=== PATIENT | male | born 1950 | race Caucasian/White ===

== ENCOUNTER → 2017-05-22 | Outpatient (CLI) | payer SELFPAY ==
[2016-01-29 12:08] VITALS: BP 115/61
[2017-05-22 17:10] LABS: BASOPHILS % (AUTO) 0.6 % (0.2-1.0); EOSINOPHILS # (AUTO) 0.1 x10^3/uL (0.0-0.2); EOSINOPHILS % (AUTO) 2.1 % (0.9-2.9); HEMATOCRIT 36.8 % (42.0-54.0); LYMPHOCYTES # (AUTO) 0.5 X10^3/uL (1.3-2.9); LYMPHOCYTES % (AUTO) 8.4 % (21.0-51.0); MEAN CORPUSCULAR HEMOGLOBIN 35.7 pg (27.0-34.0); MEAN CORPUSCULAR HGB CONC 35.2 g/dL (33.0-35.0); MEAN CORPUSCULAR VOLUME 101.3 fL (80.0-100.0); MEAN PLATELET VOLUME 8.8 fL (7.4-11.0); MONOCYTES # (AUTO) 0.6 x10^3/uL (0.3-0.8); MONOCYTES % (AUTO) 9.7 % (0.0-13.0); NEUTROPHILS # (AUTO) 4.5 x10^3/uL (2.2-4.8); NEUTROPHILS % (AUTO) 79.2 % (42.0-75.0); PLATELET COUNT 129 X10^3/uL (150.0-450.0); RED BLOOD COUNT 3.63 X10^6/uL (4.7-6.0); RED CELL DISTRIBUTION WIDTH 13.9 % (11.6-16.5); WHITE BLOOD COUNT 5.7 X10^3/uL (3.6-10.0)
[2017-05-22 17:29] LABS: ALANINE AMINOTRANSFERASE 52 Units/L (12-78); ALBUMIN 2.5 g/dL (3.4-5.0); ALKALINE PHOSPHATASE 126 Units/L (46-116); AMYLASE 127 Units/L (25-115); ASPARTATE AMINO TRANSFERASE 56 Units/L (15-37); BLOOD UREA NITROGEN 14 mg/dL (7-18); CALCIUM 7.9 mg/dL (8.5-10.1); CARBON DIOXIDE 23.6 mmol/L (21-32); CHLORIDE 109 mmol/L (98-107); CHOL/HDL RATIO 2.9 (0.0-5.0); CHOLESTEROL 97 mg/dL (0-200); COR CA(FOR HYPOALB) 9.1 mg/dL (8.5-10.1); CREATININE 0.99 mg/dL (0.70-1.30); HDL CHOLESTEROL 33 mg/dL (40-60); LIPASE 199 Units/L (73-393); MAGNESIUM 1.9 mg/dL (1.7-2.9); SODIUM 142 mmol/L (136-145); TOTAL PROTEIN 6.7 g/dL (6.4-8.2); TRIGLYCERIDES 67 mg/dL (0-150); TSH (3RD GENERATION) 2.026 uIU/mL (0.358-3.74); eGFR BLACK RACES > 60 (>60); eGFR NON BLACK RACES > 60 (>60)
== END ==
LOC: LAB 16:48
PROVIDERS: ATTEND Nurse Practitioner Family
DX: R53.83 Other fatigue (principal); E78.4 Other hyperlipidemia; E55.9 Vitamin D deficiency, unspecified; R94.5 Abnormal results of liver function studies; D51.0 Vitamin B12 deficiency anemia due to intrinsic factor deficiency
CPT/HCPCS: 36415; 80053; 80061; 82150; 82607; 82977; 83690; 83735; 84443; 85025

== ENCOUNTER 2017-06-27 11:02 | Inpatient (IN) | payer OTHER ==
--- NOTE | 2017-06-27 11:22 | DR.URIAD ---
HPI - Time Seen Time seen: 11:15 - PCP Primary Care Physician: gretchen - Complaint Chief Complaint Doctors Comments: Patient presents with complaint of shortness of breath. History of COPD using albuterol qid w/o home oxygen. Oxygen saturations of 98%. History of cirrohsis Chief Complaint:: pt stated he has liver problems, short of breath and swelling all over. - Source History Provided: Patient - Mode of Arrival Mode of Arrival: Ambulatory - Timing Onset of Chief Complaint: 06/13/17 PMH - PMH Past Medical History: Yes Past Medical History: Anemia, Cirrhosis, GERD, Liver Disease Past Surgical History: Yes Surgical History: Appendectomy - Family History History of Family Medical Conditions: Yes Family Medical History: Diabetes Mellitus, Cancer, [place], Sudden Cardiac , Hypertension - Social History Does patient currently use any type of tobacco product: Yes Have you used tobacco products in the last 12 months: Yes Type of Tobacco Use: Cigarettes How many years tobacco product used: 50 Does any household member use tobacco: Yes Alcohol Use: None Do you use any recreational Drugs:: No Lives With: Family Lives Where: Home - infectious screening In the last 2 months have you had wt loss of >10#?: NO Have you had fever, night sweats or hemotysis?: No Have you traveled outside the country in the last 6 months?: No Isolation: Standard ROS - Review of Systems Eyes: No Symptoms Reported ENTM: No Symptoms Reported, Hearing Loss Cardiovascular: No Symptoms Reported Gastrointestinal/Abdominal: No Symptoms Reported Genitourinary: No Symptoms Reported Neurological: No Symptoms Reported Musculoskeletal: No Symptoms Reported Integumentary: No Symptoms Reported Hematologic/Lymphatic: No Symptoms Reported Endocrine: No Symptoms Reported Psychiatric: No Symptoms Reported All Other Systems: Reviewed and Negative PE - Vital Signs Vitals: Temperature 98.9 F Pulse Rate 91 Respiratory Rate 18 Blood Pressure [Left Arm] 115/61 Blood Pressure [Right Arm] 132/63 Blood Pressure 115/59 O2 Sat by Pulse Oximetry 96 - General Limitations: No Limitations General Appearance: Alert - Head Head Exam: Normal Inspection, Atraumatic - Eyes Eye exam: Normal Appearance, PERRL, EOMI - ENT ENT Exam: Normal Exam External Ear Exam: Normal External Inspection TM/Canal Exam: Bilateral Normal Nose Exam: Normal Nose Exam Nasal Speculum Exam: Bilateral Normal Mouth Exam: Normal Inspection Throat Exam: Normal Inspection - Neck Neck Exam: Normal Inspection - Chest Chest Inspection: Normal Inspection - Respiratory Respiratory Exam: Prolonged Expiratory Phase Respiratory Exam: Bilateral Wheezing (prolong expiratory phase) - Cardiovascular Cardiovascular Exam: Regular Rate, Normal Rhythm - Abdominal Exam Abdominal Exam: Organomegaly, Ascites Abdominal Tenderness: Other (diffuse ascites) - Extremeties Extremities Exam: Normal Inspection, Edema (4+pitting), Joint Swelling - Back Back Exam: Normal Inspection - Neurologic Neurological Exam: Alert, Oriented X3, CN II-XII Intact - Psychiatric Psychiatric Exam: Normal Affect - Skin Skin Exam: Warm, Dry, Intact Course - Reevaluation 1st: Improved (Lungs with minimal expiratory wheeze 1237) - Consultation Called: 12:45 (Dr Patel agreed to admit for further management) ROR - Labs Reviewed Result Diagrams: 06/27/17 11:45 06/27/17 11:45 Laboratory: WBC 7.4 X10^3/uL (3.6-10.0) 06/27/17 11:45 RBC 2.95 X10^6/uL (4.7-6.0) L 06/27/17 11:45 Hgb 10.6 g/dL (13.5-18.0) L 06/27/17 11:45 Hct 29.7 % (42.0-54.0) L 06/27/17 11:45 MCV 100.8 fL (80.0-100.0) H 06/27/17 11:45 MCH 35.8 pg (27.0-34.0) H 06/27/17 11:45 MCHC 35.5 g/dL (33.0-35.0) H 06/27/17 11:45 RDW 14.0 % (11.6-16.5) 06/27/17 11:45 Plt Count 156 X10^3/uL (150.0-450.0) 06/27/17 11:45 MPV 8.1 fL (7.4-11.0) 06/27/17 11:45 Neut % (Auto) 81.1 % (42.0-75.0) H 06/27/17 11:45 Lymph % (Auto) 5.8 % (21.0-51.0) L 06/27/17 11:45 Barnes % (Auto) 10.2 % (0.0-13.0) 06/27/17 11:45 Eos % (Auto) 2.4 % (0.9-2.9) 06/27/17 11:45 Baso % (Auto) 0.5 % (0.2-1.0) 06/27/17 11:45 Neut # (Auto) 6.0 x10^3/uL (2.2-4.8) H 06/27/17 11:45 Lymph # (Auto) 0.4 X10^3/uL (1.3-2.9) L 06/27/17 11:45 Barnes # (Auto) 0.8 x10^3/uL (0.3-0.8) 06/27/17 11:45 Eos # (Auto) 0.2 x10^3/uL (0.0-0.2) 06/27/17 11:45 Baso # (Auto) 0.0 X10^3/uL (0.0-0.1) 06/27/17 11:45 Absolute Nucleated RBC 0.0 /100WBC 06/27/17 11:45 D-Dimer > 5000 ng/mL (0-400) H* 06/27/17 11:45 Sodium 139 mmol/L (136-145) 06/27/17 11:45 Corrected Sodium TNP 06/27/17 11:45 Potassium 4.0 mmol/L (3.5-5.1) 06/27/17 11:45 Chloride 105 mmol/L (98-107) 06/27/17 11:45 Carbon Dioxide 25.8 mmol/L (21-32) 06/27/17 11:45 BUN 40 mg/dL (7-18) H 06/27/17 11:45 Creatinine 2.16 mg/dL (0.70-1.30) H 06/27/17 11:45 Est GFR (MDRD) Af Amer 40 (>60) L 06/27/17 11:45 Est GFR (MDRD) Non-Af 33 (>60) L 06/27/17 11:45 Glucose 109 mg/dL (65-99) H 06/27/17 11:45 Calcium 8.0 mg/dL (8.5-10.1) L 06/27/17 11:45 Corrected Calcium 9.3 mg/dL (8.5-10.1) 06/27/17 11:45 Total Bilirubin 0.80 mg/dL (0.2-1.0) 06/27/17 11:45 AST 67 Units/L (15-37) H 06/27/17 11:45 ALT 57 Units/L (12-78) 06/27/17 11:45 Alkaline Phosphatase 121 Units/L (46-116) H 06/27/17 11:45 Total Protein 6.8 g/dL (6.4-8.2) 06/27/17 11:45 Albumin 2.4 g/dL (3.4-5.0) L 06/27/17 11:45 Globulin 4.4 g/dL (2.5-4.5) 06/27/17 11:45 Albumin/Globulin Ratio 0.5 Ratio (1.1-2.1) L 06/27/17 11:45 - XRAY XRAY Interpreted by: Radiologist (Chest: the lungs are clear. The heart size is normal. Evidence for remote left clavicular fracture is noted. No acute bony abnormalities are identified. Impression: No radiographic evidence of acute cardiopulmonary disease or significant change is noted when compared to the prior examination (01/29/16)) - Diagnosis Discharge Problem: Acute dyspnea, Scrotal edema, Prerenal azotemia, COPD (chronic obstructive pulmonary disease) Cirrhosis of liver Qualifiers: Hepatic cirrhosis type: unspecified biliary cirrhosis Qualified Code(s): K74.5 - Biliary cirrhosis, unspecified Ascites Qualifiers: Ascites type: other type Qualified Code(s): R18.8 - Other ascites Hepatitis C Qualifiers: Viral hepatitis chronicity: chronic Hepatic coma status: without hepatic coma Qualified Code(s): B18.2 - Chronic viral hepatitis C - Discharge Plan Condition: Stable - Follow ups/Referrals Follow ups/Referrals: Robin Patel [Primary Care Provider] - 3 days - Instructions
[2017-06-27] MEDS ORDERED: DUONEB 0.5 MG/3 MG NEB SCH (11:30)
[2017-06-27 11:56] LABS: BASOPHILS % (AUTO) 0.5 % (0.2-1.0); EOSINOPHILS # (AUTO) 0.2 x10^3/uL (0.0-0.2); EOSINOPHILS % (AUTO) 2.4 % (0.9-2.9); HEMATOCRIT 29.7 % (42.0-54.0); HEMOGLOBIN 10.6 g/dL (13.5-18.0); LYMPHOCYTES # (AUTO) 0.4 X10^3/uL (1.3-2.9); LYMPHOCYTES % (AUTO) 5.8 % (21.0-51.0); MEAN CORPUSCULAR HEMOGLOBIN 35.8 pg (27.0-34.0); MEAN CORPUSCULAR HGB CONC 35.5 g/dL (33.0-35.0); MEAN CORPUSCULAR VOLUME 100.8 fL (80.0-100.0); MEAN PLATELET VOLUME 8.1 fL (7.4-11.0); MONOCYTES # (AUTO) 0.8 x10^3/uL (0.3-0.8); MONOCYTES % (AUTO) 10.2 % (0.0-13.0); NEUTROPHILS % (AUTO) 81.1 % (42.0-75.0); PLATELET COUNT 156 X10^3/uL (150.0-450.0); RED BLOOD COUNT 2.95 X10^6/uL (4.7-6.0); WHITE BLOOD COUNT 7.4 X10^3/uL (3.6-10.0)
[2017-06-27 12:11] LABS: ALANINE AMINOTRANSFERASE 57 Units/L (12-78); ALBUMIN 2.4 g/dL (3.4-5.0); ALKALINE PHOSPHATASE 121 Units/L (46-116); ASPARTATE AMINO TRANSFERASE 67 Units/L (15-37); BLOOD UREA NITROGEN 40 mg/dL (7-18); CARBON DIOXIDE 25.8 mmol/L (21-32); CHLORIDE 105 mmol/L (98-107); COR CA(FOR HYPOALB) 9.3 mg/dL (8.5-10.1); CREATININE 2.16 mg/dL (0.70-1.30); SODIUM 139 mmol/L (136-145); TOTAL PROTEIN 6.8 g/dL (6.4-8.2); eGFR BLACK RACES 40 (>60); eGFR NON BLACK RACES 33 (>60)
[2017-06-27] MEDS ORDERED: DUONEB 0.5 MG/3 MG ONE (12:28)
--- NOTE | 2017-06-27 12:30 | RAD ---
HISTORY: COPD. Cirrhosis. Study: AP portable chest Comparison: 01/29/2016 Findings: The lungs are clear. The heart size is normal. Evidence for remote left clavicular fracture is note d. No acute bony abnormalities are identified. IMPRESSION: 1. No radiographic evidence of acute cardiopulmonary disease or significant change is noted when com pared to the prior examination. Reported By:
[2017-06-27] MEDS ORDERED: PHENERGAN SUPP 25 MG RECTAL PRN (13:16)
[2017-06-27] MEDS: LASIX IVP SCH ×2 (13:44→20:51)
[2017-06-27] MEDS ORDERED: TORADOL 30 MG VIAL IVP ONE (14:37)
[2017-06-27] MEDS ORDERED: TORADOL 30 MG VIAL ONE (14:44)
[2017-06-27] MEDS ORDERED: ALBUTEROL SULFATE INH SCH (15:00)
[2017-06-27] MEDS ORDERED: PROVENTIL NEB TX 0.083% 2.5MG/ 3ML NEB PRN (15:28)
[2017-06-27] MEDS: PROVENTIL NEB TX 0.083% 2.5MG/ 3ML NEB SCH (17:01)
[2017-06-27] MEDS: NICOTINE PATCH TD SCH (18:08)
[2017-06-27] MEDS: ALDACTONE TAB 25 MG PO SCH (20:51)
[2017-06-27] MEDS: CHRONULAC PO SCH (20:51)
[2017-06-27] MEDS: AMBIEN PO SCH (20:51)
[2017-06-27] MEDS: ADVIL TAB 200 MG PO PRN (21:42)
[2017-06-28] MEDS: PROVENTIL NEB TX 0.083% 2.5MG/ 3ML NEB SCH ×5 (00:32→17:05)
[2017-06-28 05:27] LABS: BASOPHILS % (AUTO) 0.4 % (0.2-1.0); EOSINOPHILS # (AUTO) 0.2 x10^3/uL (0.0-0.2); EOSINOPHILS % (AUTO) 2.8 % (0.9-2.9); HEMATOCRIT 26.4 % (42.0-54.0); HEMOGLOBIN 9.4 g/dL (13.5-18.0); LYMPHOCYTES # (AUTO) 0.4 X10^3/uL (1.3-2.9); LYMPHOCYTES % (AUTO) 6.9 % (21.0-51.0); MEAN CORPUSCULAR HEMOGLOBIN 36.2 pg (27.0-34.0); MEAN CORPUSCULAR HGB CONC 35.5 g/dL (33.0-35.0); MEAN PLATELET VOLUME 8.7 fL (7.4-11.0); MONOCYTES # (AUTO) 0.8 x10^3/uL (0.3-0.8); MONOCYTES % (AUTO) 12.9 % (0.0-13.0); NEUTROPHILS # (AUTO) 4.8 x10^3/uL (2.2-4.8); PLATELET COUNT 147 X10^3/uL (150.0-450.0); RED BLOOD COUNT 2.59 X10^6/uL (4.7-6.0); RED CELL DISTRIBUTION WIDTH 13.9 % (11.6-16.5)
[2017-06-28 05:32] LABS: CALCIUM 7.4 mg/dL (8.5-10.1); TOTAL PROTEIN 5.8 g/dL (6.4-8.2)
[2017-06-28 06:07] LABS: WHITE BLOOD COUNT 6.7 X10^3/uL (3.6-10.0)
[2017-06-28 06:08] LABS: PLATELET MORPHOLOGY COMMENT NORMAL (NORMAL)
[2017-06-28] MEDS ORDERED: PATIENT'S HOME MEDICATION (Potassium Chloride [K-Tab Er] 1 TAB) PO SCH (09:00)
[2017-06-28] MEDS ORDERED: MAGNESIUM OXIDE 500 MG PO SCH (09:00)
[2017-06-28] MEDS: LASIX IVP SCH ×2 (09:11→20:57)
[2017-06-28] MEDS: CHRONULAC PO SCH ×2 (09:11→20:57)
[2017-06-28] MEDS: ALDACTONE TAB 25 MG PO SCH ×2 (09:11→20:57)
[2017-06-28] MEDS: MICRO K EXTEN CAP 10 MEQ PO SCH (09:11)
[2017-06-28] MEDS: MAG-OX TAB PO SCH (09:11)
[2017-06-28] MEDS: NICOTINE PATCH TD SCH (09:12)
[2017-06-28 10:24] VITALS: BMI 30.1
[2017-06-28] MEDS: ADVIL TAB 200 MG PO PRN (10:37)
[2017-06-28] MEDS: ALBUMIN HUMAN 25%- 100ML 100 ML IV SCH (11:27)
[2017-06-28] MEDS: MORPHINE SULFATE INJ 2 MG INJ IVP PRN ×2 (11:28→19:49)
[2017-06-28] MEDS ORDERED: NS 250 ML IV 250 ML IV ONE (11:30)
--- NOTE | 2017-06-28 12:36 | NM ---
HISTORY: COPD, elevated D-dimer Study: Nuclear Medicine Ventilation Perfusion Study Comparison: Chest radiograph 06/27/2017 Technique: After the administration of 5.4 mCi of technetium 99m MAA followed by inhalation of 30.5 m Ci of technetium 99m DTPA, anterior, posterior, and lateral perfusion and ventilation images were sub mitted. Findings: Evaluation of perfusion physiology demonstrates no significant segmental or subsegmental defect to larson ggest pulmonary embolus. There is central clumping of DTPA that can be seen in the setting of COPD. T here is symmetric ventilation bilaterally without evidence of defect. IMPRESSION: 1. No evidence of PE. Reported By:
--- NOTE | 2017-06-28 14:38 | VAS ---
HISTORY: Bilateral lower extremity edema, elevated D-dimer Study: Bilateral lower extremity venous Doppler Comparison: 01/26/2016 Technique: Multiple grayscale sonographic images were obtained. Color duplex Doppler evaluation was p erformed. Findings: Sonographic evaluation of both lower extremities demonstrated no evidence for deep venous thrombosis in the common femoral, superficial femoral or popliteal veins. The tibial veins are patent. IMPRESSION: No evidence for deep venous thrombosis in either lower extremity Reported By:
[2017-06-28] MEDS: AMBIEN PO SCH (20:57)
--- NOTE | 2017-06-28 21:27 | DR.H&P ---
H&P - History & Physical for Day of: H&P Date: 06/27/17 - Chief Complaint Chief Complaint: SHORTNESS OF BREATH, SWELLING - Allergies Allergies/Adverse Reactions: Allergies Allergy/AdvReac Type Severity Reaction Status Date / Time acetaminophen Allergy Verified 06/27/17 11:04 [From Lorcet (hydrocodone)] codeine Allergy Verified 06/27/17 11:04 hydrocodone Allergy Verified 06/27/17 11:04 [From Lorcet (hydrocodone)] STEROID Allergy Uncoded 06/27/17 15:14 - History of Present Illness History of Present Illness: IS A 66 YEAR OLD PATIENT OF OURS WHO PRESENTED TO THE EMERGENCY ROM WITH COMPLAINTS OF SHORTNESS OF BREATH AND GENERALIZED SWELLING. PATIENT REPORTS A HISTORY OF LIVER FAILURE, CIRRHOSIS, AND COPD. HE REPORTS COMPLIANCE WITH ALBUTERAL AND HOME OXYGEN, HOWEVER, SYMPTOMS HAVE ONLY WORSENED. ON EXAMINATION, PATIENT IS NOTED WITH 2+ LOWER EXTREMITY PITTING EDEMA WELL SCROTAL EDEMA. ON ARRIVAL, VITALS WERE 98.9- 91-18-96%-115/59. LABS WERE OBTAINED. ABNORMAL LAB VALUES INCLUDE THE FOLLOWING : RBC 2.95, HGB 10.6, HCT 29.7, BUN 40, CREATININE 2.16, GLUCOSE 109, CALCIUM 8.0, AST 67, ALK PHOS 121, ALBUMIN 2.4. A CHEST XRAY WAS OBTAINED AND REVEALED NO RADIOGRAPHIC EVIDENCE OF ACUTE CARDIOPULMONARY DISEASE OR SIGNIFICANT CHANGE NOTED WHEN COMPARD TO THE PRIOR EXAMINATION. PATIENT WAS GIVEN A DUONEB X 1 AND TORADOL 30MG IV X 1. VINCENT IMPROVEMENT IN SYMPTOMS NOTED. PATIENT WAS ADMITTED FOR FURTHER EVALUATION AND TERATMENT. HE WAS STARTED ON LASIX 40MG IV BID WELL RESPIRATORY TREATMENTS. HOME MEDICATIONS WERE RESUMED. A VQ SCAN WELL BILATERAL LOWER EXTREMITY VENOUS DOPPLERS WILL BE OBTAINED. OTHERWISE, WE WILL FOLLOW UP WITH AM LABS AND CONTINUE TO MONITOR PATIENT. - Past Medical History Past Medical History: Anemia, Cirrhosis, GERD, Liver Disease Additional Medical History: COPD, Hepatitis C, Cirrhosis, Back Pain, Previous Blood Transfusion - Past Surgical History Surgical History: Appendectomy, Other Additional Surgical History: 2 Amputations - Family History Family Medical History: Cancer, [place] - Social History Does patient currently use any type of tobacco product: Yes Have you used tobacco products in the last 12 months: Yes Type of Tobacco Use: Cigarettes How many years tobacco product used: 50 Does any household member use tobacco: Yes Alcohol Use: None Drug Use: None - Medications Home Medications: Albuterol Sulfate [Proventil HFA Inhaler 6.7 gm] 6.7 inh INH BID 06/27/17 [ History Confirmed 06/27/17] Albuterol Sulfate [VENTOLIN or PROAIR HFA Inhaler *] 108 inh INH Q6HR 06/27/17 [ History Confirmed 06/27/17] Ibuprofen [Motrin Ib] 200 mg PO TID PRN 06/27/17 [History Confirmed 06/27/17] Magnesium Oxide [Magnesium] 500 mg PO DAILY 06/27/17 [History Confirmed 06/27/17 ] Zolpidem Tartrate 10 mg PO HS 06/27/17 [History Confirmed 06/27/17] - Review of Systems Constitutional: Weakness Eyes: No Symptoms Reported ENT: No Symptoms Reported Respiratory: Shortness of Breath Cardiovascular: Edema (BILATERAL LOWER EXTREMITIES, SCROTUM ) Gastrointestinal: No Symptoms Reported Genitourinary: No Symptoms Reported Musculoskeletal: No Symptoms Reported Skin: No Symptoms Reported Neurological: Weakness - Physical Exam Vital Signs: Temperature 98.5 F Pulse Rate [Right Brachial] 87 Pulse Rate 72 Respiratory Rate 24 Blood Pressure [Left Arm] 116/58 Blood Pressure [Right Arm] 113/57 Blood Pressure 115/59 O2 Sat by Pulse Oximetry 97 Oriented: Normal Eyes: Normal Ear: Normal Nose: Normal Throat: Normal Respiratory: Diminished Throughout Cardiovascular: Edema (BILATERAL LOWER EXTREMITY 2+ PITTING EDEMA, SCROTAL EDEMA ) : Normal Auscultation: Bowel Sounds: Normal Palpation: Normal Tenderness: Normal Skin: Normal Musculoskeletal: Normal Psychiatric: Normal Mood Description: Calm Affect: Normal Speech Pattern: Clear - Assessment/Plan (1) Acute dyspnea Status: Acute Plan: ADMIT, RESPIRATORY TREATMENTS, LASIX 40MG IV BID, CONTINUE TO MONITOR (2) Ascites Qualifiers: Ascites type: other type Qualified Code(s): R18.8 - Other ascites Status: Acute (3) Prerenal azotemia Status: Acute (4) Scrotal edema Status: Acute
[2017-06-29] MEDS: PROVENTIL NEB TX 0.083% 2.5MG/ 3ML NEB SCH ×4 (01:04→17:25)
[2017-06-29] MEDS: MORPHINE SULFATE INJ 2 MG INJ IVP PRN ×3 (03:11→19:45)
[2017-06-29 06:34] LABS: BASOPHILS % (AUTO) 0.5 % (0.2-1.0); EOSINOPHILS # (AUTO) 0.2 x10^3/uL (0.0-0.2); EOSINOPHILS % (AUTO) 3.4 % (0.9-2.9); HEMOGLOBIN 9.7 g/dL (13.5-18.0); LYMPHOCYTES # (AUTO) 0.4 X10^3/uL (1.3-2.9); LYMPHOCYTES % (AUTO) 6.5 % (21.0-51.0); MEAN CORPUSCULAR HEMOGLOBIN 36.3 pg (27.0-34.0); MEAN CORPUSCULAR HGB CONC 35.9 g/dL (33.0-35.0); MEAN CORPUSCULAR VOLUME 100.9 fL (80.0-100.0); MEAN PLATELET VOLUME 8.2 fL (7.4-11.0); MONOCYTES # (AUTO) 0.7 x10^3/uL (0.3-0.8); MONOCYTES % (AUTO) 11.8 % (0.0-13.0); NEUTROPHILS # (AUTO) 4.9 x10^3/uL (2.2-4.8); NEUTROPHILS % (AUTO) 77.8 % (42.0-75.0); PLATELET COUNT 141 X10^3/uL (150.0-450.0); RED BLOOD COUNT 2.68 X10^6/uL (4.7-6.0); RED CELL DISTRIBUTION WIDTH 13.8 % (11.6-16.5); WHITE BLOOD COUNT 6.2 X10^3/uL (3.6-10.0)
[2017-06-29 06:51] LABS: ALANINE AMINOTRANSFERASE 53 Units/L (12-78); ALBUMIN 2.5 g/dL (3.4-5.0); ALKALINE PHOSPHATASE 100 Units/L (46-116); ASPARTATE AMINO TRANSFERASE 54 Units/L (15-37); BLOOD UREA NITROGEN 30 mg/dL (7-18); CALCIUM 7.3 mg/dL (8.5-10.1); CARBON DIOXIDE 27.5 mmol/L (21-32); CHLORIDE 105 mmol/L (98-107); COR CA(FOR HYPOALB) 8.5 mg/dL (8.5-10.1); COR NA(FOR HYPERGLY) 139 mmol/L (136-145); CREATININE 1.43 mg/dL (0.70-1.30); SODIUM 138 mmol/L (136-145); TOTAL PROTEIN 6.4 g/dL (6.4-8.2); eGFR BLACK RACES > 60 (>60); eGFR NON BLACK RACES 53 (>60)
[2017-06-29] MEDS: CHRONULAC PO SCH ×2 (08:48→20:57)
[2017-06-29] MEDS: MICRO K EXTEN CAP 10 MEQ PO SCH (08:48)
[2017-06-29] MEDS: MAG-OX TAB PO SCH (08:48)
[2017-06-29] MEDS: ALDACTONE TAB 25 MG PO SCH ×2 (08:49→20:57)
[2017-06-29] MEDS: LASIX IVP SCH ×2 (08:49→20:58)
[2017-06-29] MEDS: NICOTINE PATCH TD SCH (08:49)
[2017-06-29] MEDS: ALBUMIN HUMAN 25%- 100ML 100 ML IV SCH (08:50)
[2017-06-29] MEDS: AMBIEN PO SCH (20:57)
[2017-06-30] MEDS: PROVENTIL NEB TX 0.083% 2.5MG/ 3ML NEB SCH ×3 (00:20→13:00)
[2017-06-30] MEDS: MORPHINE SULFATE INJ 2 MG INJ IVP PRN ×4 (01:15→22:19)
[2017-06-30 06:39] LABS: BASOPHILS % (AUTO) 0.5 % (0.2-1.0); EOSINOPHILS # (AUTO) 0.2 x10^3/uL (0.0-0.2); EOSINOPHILS % (AUTO) 2.8 % (0.9-2.9); HEMATOCRIT 25.6 % (42.0-54.0); HEMOGLOBIN 9.2 g/dL (13.5-18.0); LYMPHOCYTES # (AUTO) 0.5 X10^3/uL (1.3-2.9); LYMPHOCYTES % (AUTO) 5.9 % (21.0-51.0); MEAN CORPUSCULAR HEMOGLOBIN 36.2 pg (27.0-34.0); MEAN CORPUSCULAR VOLUME 100.7 fL (80.0-100.0); MEAN PLATELET VOLUME 8.5 fL (7.4-11.0); MONOCYTES # (AUTO) 1.1 x10^3/uL (0.3-0.8); MONOCYTES % (AUTO) 12.9 % (0.0-13.0); NEUTROPHILS # (AUTO) 6.4 x10^3/uL (2.2-4.8); NEUTROPHILS % (AUTO) 77.9 % (42.0-75.0); PLATELET COUNT 134 X10^3/uL (150.0-450.0); RED BLOOD COUNT 2.54 X10^6/uL (4.7-6.0); RED CELL DISTRIBUTION WIDTH 13.6 % (11.6-16.5); WHITE BLOOD COUNT 8.2 X10^3/uL (3.6-10.0)
[2017-06-30 07:00] LABS: ALANINE AMINOTRANSFERASE 52 Units/L (12-78); ALBUMIN 2.6 g/dL (3.4-5.0); ALKALINE PHOSPHATASE 95 Units/L (46-116); ASPARTATE AMINO TRANSFERASE 54 Units/L (15-37); BLOOD UREA NITROGEN 25 mg/dL (7-18); CALCIUM 7.1 mg/dL (8.5-10.1); CARBON DIOXIDE 26.7 mmol/L (21-32); CHLORIDE 103 mmol/L (98-107); COR CA(FOR HYPOALB) 8.2 mg/dL (8.5-10.1); CREATININE 1.25 mg/dL (0.70-1.30); SODIUM 136 mmol/L (136-145); TOTAL PROTEIN 6.3 g/dL (6.4-8.2); eGFR BLACK RACES > 60 (>60); eGFR NON BLACK RACES > 60 (>60)
[2017-06-30] MEDS: LASIX IVP SCH ×2 (08:21→20:49)
[2017-06-30] MEDS: MICRO K EXTEN CAP 10 MEQ PO SCH (08:21)
[2017-06-30] MEDS: CHRONULAC PO SCH ×2 (08:21→20:50)
[2017-06-30] MEDS: ALDACTONE TAB 25 MG PO SCH ×2 (08:21→20:49)
[2017-06-30] MEDS: MAG-OX TAB PO SCH (08:21)
[2017-06-30] MEDS: ALBUMIN HUMAN 25%- 100ML 100 ML IV SCH (08:22)
[2017-06-30] MEDS: NICOTINE PATCH TD SCH (08:22)
[2017-06-30] MEDS: ADVIL TAB 200 MG PO PRN ×2 (08:33→17:01)
[2017-06-30] MEDS ORDERED: PROVENTIL NEB TX 0.083% 2.5MG/ 3ML ONE (13:17)
--- NOTE | 2017-06-30 14:46 | US ---
History: Cirrhosis and liver disease and abdominal distention Study: Ultrasound of the abdomen Findings: The liver is normal in size without focal mass. The gallbladder is contracted around multiple stones. The stones are small and casts strong acoustic shadows. The common hepatic duct measures 7 mm. The right kidney measures 11.5 x 4.8 x 4.9 cm with cortical thickness of 1.2 cm. The left kidney veronica ures 10 x 5.4 x 5 cm with cortical thickness of 1.8 cm. There is no hydronephrosis. The spleen measures 8.6 x 3.9 x 4.2 cm. The pancreas is poorly visualized. The IVC is patent. The aorta is obscured by gas. There is moderate to severe ascites. Impression: 1. Moderately severe ascites 2. Cholelithiasis Reported By:
[2017-06-30] MEDS: AMBIEN PO SCH (20:49)
[2017-07-01] MEDS: PROVENTIL NEB TX 0.083% 2.5MG/ 3ML NEB SCH ×4 (00:38→17:02)
[2017-07-01] MEDS: ADVIL TAB 200 MG PO PRN ×2 (03:49→15:18)
[2017-07-01] MEDS: MORPHINE SULFATE INJ 2 MG INJ IVP PRN ×3 (04:27→22:48)
[2017-07-01 06:35] LABS: ALANINE AMINOTRANSFERASE 47 Units/L (12-78); ALBUMIN 2.7 g/dL (3.4-5.0); ALKALINE PHOSPHATASE 94 Units/L (46-116); ASPARTATE AMINO TRANSFERASE 47 Units/L (15-37); BLOOD UREA NITROGEN 23 mg/dL (7-18); CALCIUM 7.3 mg/dL (8.5-10.1); CARBON DIOXIDE 29.3 mmol/L (21-32); CHLORIDE 104 mmol/L (98-107); COR CA(FOR HYPOALB) 8.3 mg/dL (8.5-10.1); COR NA(FOR HYPERGLY) 139 mmol/L (136-145); CREATININE 1.21 mg/dL (0.70-1.30); SODIUM 139 mmol/L (136-145); TOTAL PROTEIN 6.1 g/dL (6.4-8.2); eGFR BLACK RACES > 60 (>60); eGFR NON BLACK RACES > 60 (>60)
[2017-07-01 06:38] LABS: BASOPHILS % (AUTO) 0.5 % (0.2-1.0); EOSINOPHILS # (AUTO) 0.3 x10^3/uL (0.0-0.2); EOSINOPHILS % (AUTO) 4.2 % (0.9-2.9); HEMATOCRIT 25.2 % (42.0-54.0); HEMOGLOBIN 9.2 g/dL (13.5-18.0); LYMPHOCYTES # (AUTO) 0.4 X10^3/uL (1.3-2.9); MEAN CORPUSCULAR HEMOGLOBIN 36.4 pg (27.0-34.0); MEAN CORPUSCULAR HGB CONC 36.3 g/dL (33.0-35.0); MEAN CORPUSCULAR VOLUME 100.4 fL (80.0-100.0); MEAN PLATELET VOLUME 8.6 fL (7.4-11.0); MONOCYTES # (AUTO) 0.9 x10^3/uL (0.3-0.8); MONOCYTES % (AUTO) 12.1 % (0.0-13.0); NEUTROPHILS # (AUTO) 5.8 x10^3/uL (2.2-4.8); NEUTROPHILS % (AUTO) 78.2 % (42.0-75.0); PLATELET COUNT 128 X10^3/uL (150.0-450.0); RED BLOOD COUNT 2.51 X10^6/uL (4.7-6.0); RED CELL DISTRIBUTION WIDTH 13.6 % (11.6-16.5); WHITE BLOOD COUNT 7.4 X10^3/uL (3.6-10.0)
[2017-07-01] MEDS: LASIX IVP SCH ×2 (09:42→20:37)
[2017-07-01] MEDS: ALBUMIN HUMAN 25%- 100ML 100 ML IV SCH (09:43)
[2017-07-01] MEDS: MICRO K EXTEN CAP 10 MEQ PO SCH (09:43)
[2017-07-01] MEDS: ALDACTONE TAB 25 MG PO SCH ×2 (09:43→20:37)
[2017-07-01] MEDS: CHRONULAC PO SCH ×2 (09:43→20:37)
[2017-07-01] MEDS: NICOTINE PATCH TD SCH (09:43)
[2017-07-01] MEDS: MAG-OX TAB PO SCH (09:43)
[2017-07-01] MEDS: AMBIEN PO SCH (20:37)
[2017-07-02] MEDS: PROVENTIL NEB TX 0.083% 2.5MG/ 3ML NEB SCH ×4 (00:42→17:05)
[2017-07-02] MEDS: ADVIL TAB 200 MG PO PRN (03:06)
[2017-07-02 06:20] LABS: BASOPHILS % (AUTO) 0.6 % (0.2-1.0); EOSINOPHILS # (AUTO) 0.3 x10^3/uL (0.0-0.2); EOSINOPHILS % (AUTO) 4.5 % (0.9-2.9); HEMATOCRIT 24.6 % (42.0-54.0); LYMPHOCYTES # (AUTO) 0.4 X10^3/uL (1.3-2.9); LYMPHOCYTES % (AUTO) 5.8 % (21.0-51.0); MEAN CORPUSCULAR HEMOGLOBIN 36.4 pg (27.0-34.0); MEAN CORPUSCULAR HGB CONC 36.5 g/dL (33.0-35.0); MEAN CORPUSCULAR VOLUME 99.6 fL (80.0-100.0); MEAN PLATELET VOLUME 8.6 fL (7.4-11.0); MONOCYTES # (AUTO) 0.8 x10^3/uL (0.3-0.8); MONOCYTES % (AUTO) 12.2 % (0.0-13.0); NEUTROPHILS # (AUTO) 5.4 x10^3/uL (2.2-4.8); NEUTROPHILS % (AUTO) 76.9 % (42.0-75.0); PLATELET COUNT 127 X10^3/uL (150.0-450.0); RED BLOOD COUNT 2.47 X10^6/uL (4.7-6.0); RED CELL DISTRIBUTION WIDTH 13.5 % (11.6-16.5)
[2017-07-02 06:21] LABS: AMMONIA 26 umol/L (11-32)
[2017-07-02 07:33] LABS: ALANINE AMINOTRANSFERASE 39 Units/L (12-78); ALBUMIN 2.5 g/dL (3.4-5.0); ALKALINE PHOSPHATASE 88 Units/L (46-116); ASPARTATE AMINO TRANSFERASE 40 Units/L (15-37); BLOOD UREA NITROGEN 19 mg/dL (7-18); CALCIUM 7.3 mg/dL (8.5-10.1); CARBON DIOXIDE 26.4 mmol/L (21-32); CHLORIDE 102 mmol/L (98-107); COR CA(FOR HYPOALB) 8.5 mg/dL (8.5-10.1); CREATININE 1.18 mg/dL (0.70-1.30); SODIUM 137 mmol/L (136-145); TOTAL PROTEIN 5.8 g/dL (6.4-8.2); eGFR BLACK RACES > 60 (>60); eGFR NON BLACK RACES > 60 (>60)
[2017-07-02] MEDS: ALBUMIN HUMAN 25%- 100ML 100 ML IV SCH (09:51)
[2017-07-02] MEDS: MICRO K EXTEN CAP 10 MEQ PO SCH (09:52)
[2017-07-02] MEDS: MAG-OX TAB PO SCH (09:52)
[2017-07-02] MEDS: CHRONULAC PO SCH ×2 (09:52→20:52)
[2017-07-02] MEDS: ALDACTONE TAB 25 MG PO SCH ×2 (09:52→20:52)
[2017-07-02] MEDS: LASIX IVP SCH ×2 (09:52→20:52)
[2017-07-02] MEDS: NICOTINE PATCH TD SCH (09:52)
[2017-07-02] MEDS: MORPHINE SULFATE INJ 2 MG INJ IVP PRN ×2 (17:22→23:14)
[2017-07-02] MEDS: AMBIEN PO SCH (20:53)
--- NOTE | 2017-07-02 21:07 | PCM.PROG ---
Progress Note - Progress Note for Day of Date: 06/28/17 - Subjective Subjective: WAS ADMITTED FOR DYSPNEA, PRERENAL AZOTEMIA, AND GENERALIZED SWELLING. HE HAS A HISTORY OF LIVER FAILURE, CIRRHOSIS, AND COPD. TODAY, HE IS ALERT AND ORIENTED, LYING IN BED ON MORNING ROUNDS. HE CONTINUES WITH SHORTNESS OF BREATH AND GENERALIZED SWELLING. BILATERAL LOWER EXTREMITIES HAVE 2+ PITTING EDEMA. EXAMINATION REVEALS SCATTERED WHEEZING TO BILATERAL LUNGS. ABDOMEN IS NOTED TO BE DISTENDED WITH MILD, DIFFUSE TENDERNESS NOTED. HIS VITALS THIS MORNING ARE 98.1-85-20-96%-109/56. ABNORMAL LAB VALUES INCLUDE THE FOLLOWING: RBC 2.59, HGB 9.4, HCT 26.4, PLT COUNT 147, BUN 38, CREATININE 2.00, GLUCOSE 114, CALCIUM 7.4, AST 54, TOTAL PROTEIN 5.8, ALBUMIN 2.0. TODAY, WE WILL OBTAIN A VENOUS DOPPLER AND A VQ SCAN. WE WILL ALSO START ALBUMIN 25% AND ADMINISTER LASIX 40MG IV BID. OTHERWISE, WE WILL FOLLOW UP WITH AM LABS AND CONTINUE TO MONITOR PATIENT. - Past Medical Family Social History Past Med/Fam/Surg Hx: No changes since H&P Allergies: Allergies acetaminophen [From Lorcet (hydrocodone)] Allergy (Verified 06/27/17 11:04) codeine Allergy (Verified 06/27/17 11:04) hydrocodone [From Lorcet (hydrocodone)] Allergy (Verified 06/27/17 11:04) STEROID Allergy (Uncoded 06/27/17 15:14) - Review of Systems ROS: No change since H&P - Vital Signs and I&O's Vital Signs: Temperature 98.8 F Pulse Rate [Right Brachial] 88 Pulse Rate 90 Respiratory Rate 20 Blood Pressure [Left Arm] 104/52 Blood Pressure [Right Arm] 118/56 Blood Pressure 115/59 O2 Sat by Pulse Oximetry 95 Intake and Output: Intake & Output 06/30/17 07/01/17 07/02/17 07/03/17 11:59 11:59 11:59 11:59 Intake Total 3555 1090 1220 700 Output Total 3510 800 Balance 3555 1090 -2290 -100 - Physical Exam Oriented: Normal Eyes: Normal Ear: Normal Nose: Normal Throat: Normal Respiratory: Generalized, Diminished Cardiovascular: Edema (BILATERAL LOWER EXTREMITY 2+ PITTING EDEMA, SCROTAL EDEMA ) : Normal Auscultation: Bowel Sounds: Normal Palpation: Normal Tenderness: Normal Skin: Normal Musculoskeletal: Normal Psychiatric: Normal Mood Description: Calm Affect: Normal Speech Pattern: Clear, Appropriate - Laboratory and Diagnostics Result Diagrams: 07/02/17 04:49 07/02/17 04:49 Labs: 07/01/17 12:01 Ascities Fluid - Preliminary 06/27/17 15:40 Sputum - Expectorated Sputum Sputum Culture - Final 06/27/17 15:40 Sputum - Expectorated Sputum - Final Laboratory WBC 7.0 X10^3/uL (3.6-10.0) 07/02/17 04:49 RBC 2.47 X10^6/uL (4.7-6.0) L 07/02/17 04:49 Hgb 9.0 g/dL (13.5-18.0) L 07/02/17 04:49 Hct 24.6 % (42.0-54.0) L 07/02/17 04:49 MCV 99.6 fL (80.0-100.0) 07/02/17 04:49 MCH 36.4 pg (27.0-34.0) H 07/02/17 04:49 MCHC 36.5 g/dL (33.0-35.0) H 07/02/17 04:49 RDW 13.5 % (11.6-16.5) 07/02/17 04:49 Plt Count 127 X10^3/uL (150.0-450.0) L 07/02/17 04:49 Plt Count Comment Adequate (ADEQUATE) 06/28/17 04:46 MPV 8.6 fL (7.4-11.0) 07/02/17 04:49 Neut % (Auto) 76.9 % (42.0-75.0) H 07/02/17 04:49 Lymph % (Auto) 5.8 % (21.0-51.0) L 07/02/17 04:49 Bureau % (Auto) 12.2 % (0.0-13.0) 07/02/17 04:49 Eos % (Auto) 4.5 % (0.9-2.9) H 07/02/17 04:49 Baso % (Auto) 0.6 % (0.2-1.0) 07/02/17 04:49 Neut # (Auto) 5.4 x10^3/uL (2.2-4.8) H 07/02/17 04:49 Lymph # (Auto) 0.4 X10^3/uL (1.3-2.9) L 07/02/17 04:49 Bureau # (Auto) 0.8 x10^3/uL (0.3-0.8) 07/02/17 04:49 Eos # (Auto) 0.3 x10^3/uL (0.0-0.2) H 07/02/17 04:49 Baso # (Auto) 0.0 X10^3/uL (0.0-0.1) 07/02/17 04:49 Absolute Nucleated RBC 0.0 /100WBC 07/02/17 04:49 Plt Morphology Comment Normal (NORMAL) 06/28/17 04:46 RBC Morphology Normal (NORMAL) 06/28/17 04:46 INR Target Range - 07/02/17 04:49 INR 1.37 (0.8-1.3) H 07/02/17 04:49 APTT 36.9 SECONDS (22.9-36.5) H 07/02/17 04:49 PTT Comment - 07/02/17 04:49 D-Dimer > 5000 ng/mL (0-400) H* 06/27/17 11:45 Sodium 137 mmol/L (136-145) 07/02/17 04:49 Corrected Sodium TNP 07/02/17 04:49 Potassium 3.6 mmol/L (3.5-5.1) 07/02/17 04:49 Chloride 102 mmol/L (98-107) 07/02/17 04:49 Carbon Dioxide 26.4 mmol/L (21-32) 07/02/17 04:49 BUN 19 mg/dL (7-18) H 07/02/17 04:49 Creatinine 1.18 mg/dL (0.70-1.30) 07/02/17 04:49 Est GFR (MDRD) Af Amer > 60 (>60) 07/02/17 04:49 Est GFR (MDRD) Non-Af > 60 (>60) 07/02/17 04:49 Glucose 99 mg/dL (65-99) 07/02/17 04:49 Calcium 7.3 mg/dL (8.5-10.1) L 07/02/17 04:49 Corrected Calcium 8.5 mg/dL (8.5-10.1) 07/02/17 04:49 Total Bilirubin 0.70 mg/dL (0.2-1.0) 07/02/17 04:49 AST 40 Units/L (15-37) H 07/02/17 04:49 ALT 39 Units/L (12-78) 07/02/17 04:49 Alkaline Phosphatase 88 Units/L (46-116) 07/02/17 04:49 Ammonia 26 umol/L (11-32) 07/02/17 04:49 Total Protein 5.8 g/dL (6.4-8.2) L 07/02/17 04:49 Albumin 2.5 g/dL (3.4-5.0) L 07/02/17 04:49 Globulin 3.3 g/dL (2.5-4.5) 07/02/17 04:49 Albumin/Globulin Ratio 0.8 Ratio (1.1-2.1) L 07/02/17 04:49 Triglycerides Cancelled 07/01/17 12:01 Cholesterol Cancelled 07/01/17 12:01 LDL Cholesterol, Calc Cancelled 07/01/17 12:01 HDL Cholesterol Cancelled 07/01/17 12:01 Cholesterol/HDL Ratio Cancelled 07/01/17 12:01 Amylase Cancelled 07/01/17 12:01 Lipase Cancelled 07/01/17 12:01 Cytology Specimen To follow 07/01/17 12:01 - Plan (1) Acute dyspnea Status: Acute Plan: ADMIT, RESPIRATORY TREATMENTS, LASIX 40MG IV BID, CONTINUE TO MONITOR (2) Ascites Status: Acute Qualifiers: Ascites type: other type Qualified Code(s): R18.8 - Other ascites (3) Prerenal azotemia Status: Acute (4) Scrotal edema Status: Acute
--- NOTE | 2017-07-02 21:08 | PCM.PROG ---
Progress Note - Progress Note for Day of Date: 06/30/17 - Subjective Subjective: WAS ADMITTED FOR DYSPNEA, PRERENAL AZOTEMIA, AND GENERALIZED SWELLING. TODAY, HE IS ALERT AND ORIENTED, LYING IN BED ON MORNING ROUNDS. HE CONTINUES WITH SHORTNESS OF BREATH AND GENERALIZED SWELLING. BILATERAL LOWER EXTREMITIES CONTINUE WITH 1+ PITTING EDEMA. EXAMINATION REVEALS SCATTERED WHEEZING TO BILATERAL LUNGS. ABDOMEN CONTINUES WITH MODERATE DISTENTION AND MILD, DIFFUSE TENDERNESS. HIS VITALS THIS MORNING ARE 98.3-72-20- 97%-102/50. ABNORMAL LAB VALUES INCLUDE THE FOLLOWING: RBC 2.54, HGB 9.2, HCT 25.6, PLT [id number], BUN 25, GLUCOSE 101, CALCIUM 7.1, AST 54, TOTAL PROTEIN 6.3 , ALBUMIN 2.6. TODAY, WE WILL CONTINUE WITH LASIX AND CURRENT PLAN OF CARE. WE WILL ALSO OBTAIN AN ABDOMEN ULTRASOUND. OTHERWISE, WE WILL FOLLOW UP WITH AM LABS AND CONTINUE TO MONITOR PATIENT. - Past Medical Family Social History Past Med/Fam/Surg Hx: No changes since H&P Allergies: Allergies acetaminophen [From Lorcet (hydrocodone)] Allergy (Verified 06/27/17 11:04) codeine Allergy (Verified 06/27/17 11:04) hydrocodone [From Lorcet (hydrocodone)] Allergy (Verified 06/27/17 11:04) STEROID Allergy (Uncoded 06/27/17 15:14) - Review of Systems ROS: No change since H&P - Vital Signs and I&O's Vital Signs: Temperature 98.8 F Pulse Rate [Right Brachial] 88 Pulse Rate 90 Respiratory Rate 20 Blood Pressure [Left Arm] 104/52 Blood Pressure [Right Arm] 118/56 Blood Pressure 115/59 O2 Sat by Pulse Oximetry 95 Intake and Output: Intake & Output 06/30/17 07/01/17 07/02/17 07/03/17 11:59 11:59 11:59 11:59 Intake Total 3555 1090 1220 700 Output Total 3510 800 Balance 3552 1090 -2290 -100 - Physical Exam Oriented: Normal Eyes: Normal Ear: Normal Nose: Normal Throat: Normal Respiratory: Generalized, Diminished Cardiovascular: Edema (BILATERAL LOWER EXTREMITY 1+ PITTING EDEMA, SCROTAL EDEMA ) : Normal Auscultation: Bowel Sounds: Normal Palpation: Normal Tenderness: Normal Skin: Normal Musculoskeletal: Normal Psychiatric: Normal Mood Description: Calm Affect: Normal Speech Pattern: Clear, Appropriate - Laboratory and Diagnostics Result Diagrams: 07/02/17 04:49 07/02/17 04:49 Labs: 07/01/17 12:01 Ascities Fluid - Preliminary 06/27/17 15:40 Sputum - Expectorated Sputum Sputum Culture - Final 06/27/17 15:40 Sputum - Expectorated Sputum - Final Laboratory WBC 7.0 X10^3/uL (3.6-10.0) 07/02/17 04:49 RBC 2.47 X10^6/uL (4.7-6.0) L 07/02/17 04:49 Hgb 9.0 g/dL (13.5-18.0) L 07/02/17 04:49 Hct 24.6 % (42.0-54.0) L 07/02/17 04:49 MCV 99.6 fL (80.0-100.0) 07/02/17 04:49 MCH 36.4 pg (27.0-34.0) H 07/02/17 04:49 MCHC 36.5 g/dL (33.0-35.0) H 07/02/17 04:49 RDW 13.5 % (11.6-16.5) 07/02/17 04:49 Plt Count 127 X10^3/uL (150.0-450.0) L 07/02/17 04:49 Plt Count Comment Adequate (ADEQUATE) 06/28/17 04:46 MPV 8.6 fL (7.4-11.0) 07/02/17 04:49 Neut % (Auto) 76.9 % (42.0-75.0) H 07/02/17 04:49 Lymph % (Auto) 5.8 % (21.0-51.0) L 07/02/17 04:49 [place] % (Auto) 12.2 % (0.0-13.0) 07/02/17 04:49 Eos % (Auto) 4.5 % (0.9-2.9) H 07/02/17 04:49 Baso % (Auto) 0.6 % (0.2-1.0) 07/02/17 04:49 Neut # (Auto) 5.4 x10^3/uL (2.2-4.8) H 07/02/17 04:49 Lymph # (Auto) 0.4 X10^3/uL (1.3-2.9) L 07/02/17 04:49 [place] # (Auto) 0.8 x10^3/uL (0.3-0.8) 07/02/17 04:49 Eos # (Auto) 0.3 x10^3/uL (0.0-0.2) H 07/02/17 04:49 Baso # (Auto) 0.0 X10^3/uL (0.0-0.1) 07/02/17 04:49 Absolute Nucleated RBC 0.0 /100WBC 07/02/17 04:49 Plt Morphology Comment Normal (NORMAL) 06/28/17 04:46 RBC Morphology Normal (NORMAL) 06/28/17 04:46 INR Target Range - 07/02/17 04:49 INR 1.37 (0.8-1.3) H 07/02/17 04:49 APTT 36.9 SECONDS (22.9-36.5) H 07/02/17 04:49 PTT Comment - 07/02/17 04:49 D-Dimer > 5000 ng/mL (0-400) H* 06/27/17 11:45 Sodium 137 mmol/L (136-145) 07/02/17 04:49 Corrected Sodium TNP 07/02/17 04:49 Potassium 3.6 mmol/L (3.5-5.1) 07/02/17 04:49 Chloride 102 mmol/L (98-107) 07/02/17 04:49 Carbon Dioxide 26.4 mmol/L (21-32) 07/02/17 04:49 BUN 19 mg/dL (7-18) H 07/02/17 04:49 Creatinine 1.18 mg/dL (0.70-1.30) 07/02/17 04:49 Est GFR (MDRD) Af Amer > 60 (>60) 07/02/17 04:49 Est GFR (MDRD) Non-Af > 60 (>60) 07/02/17 04:49 Glucose 99 mg/dL (65-99) 07/02/17 04:49 Calcium 7.3 mg/dL (8.5-10.1) L 07/02/17 04:49 Corrected Calcium 8.5 mg/dL (8.5-10.1) 07/02/17 04:49 Total Bilirubin 0.70 mg/dL (0.2-1.0) 07/02/17 04:49 AST 40 Units/L (15-37) H 07/02/17 04:49 ALT 39 Units/L (12-78) 07/02/17 04:49 Alkaline Phosphatase 88 Units/L (46-116) 07/02/17 04:49 Ammonia 26 umol/L (11-32) 07/02/17 04:49 Total Protein 5.8 g/dL (6.4-8.2) L 07/02/17 04:49 Albumin 2.5 g/dL (3.4-5.0) L 07/02/17 04:49 Globulin 3.3 g/dL (2.5-4.5) 07/02/17 04:49 Albumin/Globulin Ratio 0.8 Ratio (1.1-2.1) L 07/02/17 04:49 Triglycerides Cancelled 07/01/17 12:01 Cholesterol Cancelled 07/01/17 12:01 LDL Cholesterol, Calc Cancelled 07/01/17 12:01 HDL Cholesterol Cancelled 07/01/17 12:01 Cholesterol/HDL Ratio Cancelled 07/01/17 12:01 Amylase Cancelled 07/01/17 12:01 Lipase Cancelled 07/01/17 12:01 Cytology Specimen To follow 07/01/17 12:01 - Plan (1) Acute dyspnea Status: Acute Plan: ADMIT, RESPIRATORY TREATMENTS, LASIX 40MG IV BID, CONTINUE TO MONITOR (2) Ascites Status: Acute Qualifiers: Ascites type: other type Qualified Code(s): R18.8 - Other ascites (3) Prerenal azotemia Status: Acute (4) Scrotal edema Status: Acute
--- NOTE | 2017-07-02 21:08 | PCM.PROG ---
Progress Note - Progress Note for Day of Date: 06/29/17 - Subjective Subjective: WAS ADMITTED FOR DYSPNEA, PRERENAL AZOTEMIA, AND GENERALIZED SWELLING. HE HAS A HISTORY OF LIVER FAILURE, CIRRHOSIS, AND COPD. TODAY, HE IS ALERT AND ORIENTED, LYING IN BED ON MORNING ROUNDS. HE CONTINUES WITH SHORTNESS OF BREATH AND GENERALIZED SWELLING. BILATERAL LOWER EXTREMITIES ARE NOTED WITH 1+ PITTING EDEMA. EXAMINATION REVEALS SCATTERED WHEEZING TO BILATERAL LUNGS. ABDOMEN CONTINUES WITH DISTENTION AND MILD, DIFFUSE TENDERNESS. HIS VITALS THIS MORNING ARE 97.9-82-16-96%-139/68. ABNORMAL LAB VALUES INCLUDE THE FOLLOWING: RBC 2.68, HGB 9.7, HCT 27.0, PLT COUNT 141, BUN 30 , CREATININE 1.43, GLUCOSE 124, CALCIUM 7.3, AST 54, ALBUMIN 2.5. VENOUS DOPPLER AND VQ SCAN NEGATIVE FOR DVT. TODAY, WE WILL CONTINUE WITH LASIX AND CURRENT PLAN OF CARE. OTHERWISE, WE WILL FOLLOW UP WITH AM LABS AND CONTINUE TO MONITOR PATIENT. - Past Medical Family Social History Past Med/Fam/Surg Hx: No changes since H&P Allergies: Allergies acetaminophen [From Lorcet (hydrocodone)] Allergy (Verified 06/27/17 11:04) codeine Allergy (Verified 06/27/17 11:04) hydrocodone [From Lorcet (hydrocodone)] Allergy (Verified 06/27/17 11:04) STEROID Allergy (Uncoded 06/27/17 15:14) - Review of Systems ROS: No change since H&P - Vital Signs and I&O's Vital Signs: Temperature 98.8 F Pulse Rate [Right Brachial] 88 Pulse Rate 90 Respiratory Rate 20 Blood Pressure [Left Arm] 104/52 Blood Pressure [Right Arm] 118/56 Blood Pressure 115/59 O2 Sat by Pulse Oximetry 95 Intake and Output: Intake & Output 06/30/17 07/01/17 07/02/17 07/03/17 11:59 11:59 11:59 11:59 Intake Total 3555 1090 1220 700 Output Total 3510 800 Balance 3555 1090 -2290 -100 - Physical Exam Oriented: Normal Eyes: Normal Ear: Normal Nose: Normal Throat: Normal Respiratory: Generalized, Diminished Cardiovascular: Edema (BILATERAL LOWER EXTREMITY 1+ PITTING EDEMA, SCROTAL EDEMA ) : Normal Auscultation: Bowel Sounds: Normal Tenderness: Normal Skin: Normal Musculoskeletal: Normal Psychiatric: Normal Mood Description: Calm Affect: Normal Speech Pattern: Clear, Appropriate - Laboratory and Diagnostics Result Diagrams: 07/02/17 04:49 07/02/17 04:49 Labs: 07/01/17 12:01 Ascities Fluid - Preliminary 06/27/17 15:40 Sputum - Expectorated Sputum Sputum Culture - Final 06/27/17 15:40 Sputum - Expectorated Sputum - Final Laboratory WBC 7.0 X10^3/uL (3.6-10.0) 07/02/17 04:49 RBC 2.47 X10^6/uL (4.7-6.0) L 07/02/17 04:49 Hgb 9.0 g/dL (13.5-18.0) L 07/02/17 04:49 Hct 24.6 % (42.0-54.0) L 07/02/17 04:49 MCV 99.6 fL (80.0-100.0) 07/02/17 04:49 MCH 36.4 pg (27.0-34.0) H 07/02/17 04:49 MCHC 36.5 g/dL (33.0-35.0) H 07/02/17 04:49 RDW 13.5 % (11.6-16.5) 07/02/17 04:49 Plt Count 127 X10^3/uL (150.0-450.0) L 07/02/17 04:49 Plt Count Comment Adequate (ADEQUATE) 06/28/17 04:46 MPV 8.6 fL (7.4-11.0) 07/02/17 04:49 Neut % (Auto) 76.9 % (42.0-75.0) H 07/02/17 04:49 Lymph % (Auto) 5.8 % (21.0-51.0) L 07/02/17 04:49 [place] % (Auto) 12.2 % (0.0-13.0) 07/02/17 04:49 Eos % (Auto) 4.5 % (0.9-2.9) H 07/02/17 04:49 Baso % (Auto) 0.6 % (0.2-1.0) 07/02/17 04:49 Neut # (Auto) 5.4 x10^3/uL (2.2-4.8) H 07/02/17 04:49 Lymph # (Auto) 0.4 X10^3/uL (1.3-2.9) L 07/02/17 04:49 [place] # (Auto) 0.8 x10^3/uL (0.3-0.8) 07/02/17 04:49 Eos # (Auto) 0.3 x10^3/uL (0.0-0.2) H 07/02/17 04:49 Baso # (Auto) 0.0 X10^3/uL (0.0-0.1) 07/02/17 04:49 Absolute Nucleated RBC 0.0 /100WBC 07/02/17 04:49 Plt Morphology Comment Normal (NORMAL) 06/28/17 04:46 RBC Morphology Normal (NORMAL) 06/28/17 04:46 INR Target Range - 07/02/17 04:49 INR 1.37 (0.8-1.3) H 07/02/17 04:49 APTT 36.9 SECONDS (22.9-36.5) H 07/02/17 04:49 PTT Comment - 07/02/17 04:49 D-Dimer > 5000 ng/mL (0-400) H* 06/27/17 11:45 Sodium 137 mmol/L (136-145) 07/02/17 04:49 Corrected Sodium TNP 07/02/17 04:49 Potassium 3.6 mmol/L (3.5-5.1) 07/02/17 04:49 Chloride 102 mmol/L (98-107) 07/02/17 04:49 Carbon Dioxide 26.4 mmol/L (21-32) 07/02/17 04:49 BUN 19 mg/dL (7-18) H 07/02/17 04:49 Creatinine 1.18 mg/dL (0.70-1.30) 07/02/17 04:49 Est GFR (MDRD) Af Amer > 60 (>60) 07/02/17 04:49 Est GFR (MDRD) Non-Af > 60 (>60) 07/02/17 04:49 Glucose 99 mg/dL (65-99) 07/02/17 04:49 Calcium 7.3 mg/dL (8.5-10.1) L 07/02/17 04:49 Corrected Calcium 8.5 mg/dL (8.5-10.1) 07/02/17 04:49 Total Bilirubin 0.70 mg/dL (0.2-1.0) 07/02/17 04:49 AST 40 Units/L (15-37) H 07/02/17 04:49 ALT 39 Units/L (12-78) 07/02/17 04:49 Alkaline Phosphatase 88 Units/L (46-116) 07/02/17 04:49 Ammonia 26 umol/L (11-32) 07/02/17 04:49 Total Protein 5.8 g/dL (6.4-8.2) L 07/02/17 04:49 Albumin 2.5 g/dL (3.4-5.0) L 07/02/17 04:49 Globulin 3.3 g/dL (2.5-4.5) 07/02/17 04:49 Albumin/Globulin Ratio 0.8 Ratio (1.1-2.1) L 07/02/17 04:49 Triglycerides Cancelled 07/01/17 12:01 Cholesterol Cancelled 07/01/17 12:01 LDL Cholesterol, Calc Cancelled 07/01/17 12:01 HDL Cholesterol Cancelled 07/01/17 12:01 Cholesterol/HDL Ratio Cancelled 07/01/17 12:01 Amylase Cancelled 07/01/17 12:01 Lipase Cancelled 07/01/17 12:01 Cytology Specimen To follow 07/01/17 12:01 - Plan (1) Acute dyspnea Status: Acute Plan: ADMIT, RESPIRATORY TREATMENTS, LASIX 40MG IV BID, CONTINUE TO MONITOR (2) Ascites Status: Acute Qualifiers: Ascites type: other type Qualified Code(s): R18.8 - Other ascites (3) Prerenal azotemia Status: Acute (4) Scrotal edema Status: Acute
--- NOTE | 2017-07-02 22:01 | DR.PROGNOT ---
Hospital Progress Notes - Progress Note for Day of: Progress Note Date: 07/02/17 - Chief Complaint Chief Complaint: feeling much better after drainig more than 5L of ascitic fluid. less pain and less SOB. - Past Medical Family Social History Past Med/Fam/Surg Hx: No changes since H&P Allergies: Allergies acetaminophen [From Lorcet (hydrocodone)] Allergy (Verified 06/27/17 11:04) codeine Allergy (Verified 06/27/17 11:04) hydrocodone [From Lorcet (hydrocodone)] Allergy (Verified 06/27/17 11:04) STEROID Allergy (Uncoded 06/27/17 15:14) - Review Of Systems ROS: No change since H&P - Vital Signs Vital Signs: Temperature 99.1 F Pulse Rate [Right Brachial] 91 Pulse Rate 90 Respiratory Rate 20 Blood Pressure [Left Arm] 116/58 Blood Pressure [Right Arm] 118/56 Blood Pressure 115/59 O2 Sat by Pulse Oximetry 96 - Physical Exam Oriented: Normal Eyes: Normal Ear: Normal Nose: Normal Throat: Normal Respiratory: Generalized, Diminished Cardiovascular: Edema (BILATERAL LOWER EXTREMITY 1+ PITTING EDEMA, SCROTAL EDEMA ) : Normal GI:Auscultation: Normal GI:Palpation: Other (distended abdomen with ascitis .. catheter in place and draining ..) GI: Tenderness: Normal Skin: Normal Musculoskeletal: Normal Psychiatric: Normal Mood Description: Calm Affect: Normal Speech Pattern: Clear, Appropriate - Laboratory and Diagnostics Result Diagrams: 07/02/17 04:49 07/02/17 04:49 Labs: 07/01/17 12:01 Ascities Fluid - Preliminary 06/27/17 15:40 Sputum - Expectorated Sputum Sputum Culture - Final 06/27/17 15:40 Sputum - Expectorated Sputum - Final Laboratory WBC 7.0 X10^3/uL (3.6-10.0) 07/02/17 04:49 RBC 2.47 X10^6/uL (4.7-6.0) L 07/02/17 04:49 Hgb 9.0 g/dL (13.5-18.0) L 07/02/17 04:49 Hct 24.6 % (42.0-54.0) L 07/02/17 04:49 MCV 99.6 fL (80.0-100.0) 07/02/17 04:49 MCH 36.4 pg (27.0-34.0) H 07/02/17 04:49 MCHC 36.5 g/dL (33.0-35.0) H 07/02/17 04:49 RDW 13.5 % (11.6-16.5) 07/02/17 04:49 Plt Count 127 X10^3/uL (150.0-450.0) L 07/02/17 04:49 Plt Count Comment Adequate (ADEQUATE) 06/28/17 04:46 MPV 8.6 fL (7.4-11.0) 07/02/17 04:49 Neut % (Auto) 76.9 % (42.0-75.0) H 07/02/17 04:49 Lymph % (Auto) 5.8 % (21.0-51.0) L 07/02/17 04:49 [place] % (Auto) 12.2 % (0.0-13.0) 07/02/17 04:49 Eos % (Auto) 4.5 % (0.9-2.9) H 07/02/17 04:49 Baso % (Auto) 0.6 % (0.2-1.0) 07/02/17 04:49 Neut # (Auto) 5.4 x10^3/uL (2.2-4.8) H 07/02/17 04:49 Lymph # (Auto) 0.4 X10^3/uL (1.3-2.9) L 07/02/17 04:49 [place] # (Auto) 0.8 x10^3/uL (0.3-0.8) 07/02/17 04:49 Eos # (Auto) 0.3 x10^3/uL (0.0-0.2) H 07/02/17 04:49 Baso # (Auto) 0.0 X10^3/uL (0.0-0.1) 07/02/17 04:49 Absolute Nucleated RBC 0.0 /100WBC 07/02/17 04:49 Plt Morphology Comment Normal (NORMAL) 06/28/17 04:46 RBC Morphology Normal (NORMAL) 06/28/17 04:46 INR Target Range - 07/02/17 04:49 INR 1.37 (0.8-1.3) H 07/02/17 04:49 APTT 36.9 SECONDS (22.9-36.5) H 07/02/17 04:49 PTT Comment - 07/02/17 04:49 D-Dimer > 5000 ng/mL (0-400) H* 06/27/17 11:45 Sodium 137 mmol/L (136-145) 07/02/17 04:49 Corrected Sodium TNP 07/02/17 04:49 Potassium 3.6 mmol/L (3.5-5.1) 07/02/17 04:49 Chloride 102 mmol/L (98-107) 07/02/17 04:49 Carbon Dioxide 26.4 mmol/L (21-32) 07/02/17 04:49 BUN 19 mg/dL (7-18) H 07/02/17 04:49 Creatinine 1.18 mg/dL (0.70-1.30) 07/02/17 04:49 Est GFR (MDRD) Af Amer > 60 (>60) 07/02/17 04:49 Est GFR (MDRD) Non-Af > 60 (>60) 07/02/17 04:49 Glucose 99 mg/dL (65-99) 07/02/17 04:49 Calcium 7.3 mg/dL (8.5-10.1) L 07/02/17 04:49 Corrected Calcium 8.5 mg/dL (8.5-10.1) 07/02/17 04:49 Total Bilirubin 0.70 mg/dL (0.2-1.0) 07/02/17 04:49 AST 40 Units/L (15-37) H 07/02/17 04:49 ALT 39 Units/L (12-78) 07/02/17 04:49 Alkaline Phosphatase 88 Units/L (46-116) 07/02/17 04:49 Ammonia 26 umol/L (11-32) 07/02/17 04:49 Total Protein 5.8 g/dL (6.4-8.2) L 07/02/17 04:49 Albumin 2.5 g/dL (3.4-5.0) L 07/02/17 04:49 Globulin 3.3 g/dL (2.5-4.5) 07/02/17 04:49 Albumin/Globulin Ratio 0.8 Ratio (1.1-2.1) L 07/02/17 04:49 Triglycerides Cancelled 07/01/17 12:01 Cholesterol Cancelled 07/01/17 12:01 LDL Cholesterol, Calc Cancelled 07/01/17 12:01 HDL Cholesterol Cancelled 07/01/17 12:01 Cholesterol/HDL Ratio Cancelled 07/01/17 12:01 Amylase Cancelled 07/01/17 12:01 Lipase Cancelled 07/01/17 12:01 Cytology Specimen To follow 07/01/17 12:01 - Assessment and Plan 1: tense ascitis . liver cirhosis . h/o hepatitis c. if Pt is failing medical treatment of the ascitis then placement of retirement. peritoneal catheter could be arranged .. - Problem Patient Problems: Patient Problems Acute dyspnea (Acute) R06.00 Ascites (Acute) R18.8 Prerenal azotemia (Acute) R79.89 Scrotal edema (Acute) N50.89 COPD (chronic obstructive pulmonary disease) (Chronic) J44.9 Hepatitis C (Chronic) B19.20 Liver cirrhosis (Chronic) K74.60
[2017-07-03] MEDS: PROVENTIL NEB TX 0.083% 2.5MG/ 3ML NEB SCH ×4 (00:54→17:09)
[2017-07-03] MEDS: ADVIL TAB 200 MG PO PRN ×2 (01:21→19:05)
[2017-07-03] MEDS: MORPHINE SULFATE INJ 2 MG INJ IVP PRN ×3 (06:18→16:50)
[2017-07-03 06:23] LABS: BASOPHILS % (AUTO) 0.5 % (0.2-1.0); EOSINOPHILS # (AUTO) 0.3 x10^3/uL (0.0-0.2); EOSINOPHILS % (AUTO) 4.1 % (0.9-2.9); HEMATOCRIT 24.6 % (42.0-54.0); LYMPHOCYTES # (AUTO) 0.4 X10^3/uL (1.3-2.9); LYMPHOCYTES % (AUTO) 5.1 % (21.0-51.0); MEAN CORPUSCULAR HEMOGLOBIN 36.4 pg (27.0-34.0); MEAN CORPUSCULAR HGB CONC 36.5 g/dL (33.0-35.0); MEAN CORPUSCULAR VOLUME 99.7 fL (80.0-100.0); MEAN PLATELET VOLUME 8.4 fL (7.4-11.0); MONOCYTES % (AUTO) 12.9 % (0.0-13.0); NEUTROPHILS # (AUTO) 5.9 x10^3/uL (2.2-4.8); NEUTROPHILS % (AUTO) 77.4 % (42.0-75.0); PLATELET COUNT 133 X10^3/uL (150.0-450.0); RED BLOOD COUNT 2.47 X10^6/uL (4.7-6.0); RED CELL DISTRIBUTION WIDTH 13.3 % (11.6-16.5); WHITE BLOOD COUNT 7.6 X10^3/uL (3.6-10.0)
[2017-07-03 06:27] LABS: ALANINE AMINOTRANSFERASE 36 Units/L (12-78); ALBUMIN 2.6 g/dL (3.4-5.0); ALKALINE PHOSPHATASE 78 Units/L (46-116); ASPARTATE AMINO TRANSFERASE 32 Units/L (15-37); BLOOD UREA NITROGEN 17 mg/dL (7-18); CALCIUM 7.2 mg/dL (8.5-10.1); CARBON DIOXIDE 28.8 mmol/L (21-32); CHLORIDE 100 mmol/L (98-107); COR CA(FOR HYPOALB) 8.3 mg/dL (8.5-10.1); COR NA(FOR HYPERGLY) 135 mmol/L (136-145); CREATININE 1.06 mg/dL (0.70-1.30); SODIUM 134 mmol/L (136-145); TOTAL PROTEIN 5.6 g/dL (6.4-8.2); eGFR BLACK RACES > 60 (>60); eGFR NON BLACK RACES > 60 (>60)
[2017-07-03] MEDS: ALDACTONE TAB 25 MG PO SCH ×2 (09:00→21:03)
[2017-07-03] MEDS: NICOTINE PATCH TD SCH (09:00)
[2017-07-03] MEDS: CHRONULAC PO SCH ×2 (09:00→21:02)
[2017-07-03] MEDS: MAG-OX TAB PO SCH (09:00)
[2017-07-03] MEDS: ALBUMIN HUMAN 25%- 100ML 100 ML IV SCH (09:00)
[2017-07-03] MEDS: MICRO K EXTEN CAP 10 MEQ PO SCH (09:00)
[2017-07-03] MEDS ORDERED: MORPHINE SULFATE INJ 4 MG ONE ×2 (11:07→16:45)
[2017-07-03] MEDS: LASIX IVP SCH ×2 (11:46→21:03)
[2017-07-03] MEDS: MYLICON TAB 80 MG CHEW PO PRN (19:13)
[2017-07-03 19:27] LABS: BASOPHILS # (AUTO) 0.1 X10^3/uL (0.0-0.1); BASOPHILS % (AUTO) 0.5 % (0.2-1.0); EOSINOPHILS # (AUTO) 0.2 x10^3/uL (0.0-0.2); EOSINOPHILS % (AUTO) 2.2 % (0.9-2.9); HEMATOCRIT 28.9 % (42.0-54.0); HEMOGLOBIN 10.2 g/dL (13.5-18.0); LYMPHOCYTES # (AUTO) 0.3 X10^3/uL (1.3-2.9); LYMPHOCYTES % (AUTO) 2.5 % (21.0-51.0); MEAN CORPUSCULAR HEMOGLOBIN 35.3 pg (27.0-34.0); MEAN CORPUSCULAR HGB CONC 35.4 g/dL (33.0-35.0); MEAN CORPUSCULAR VOLUME 99.8 fL (80.0-100.0); MEAN PLATELET VOLUME 8.2 fL (7.4-11.0); MONOCYTES # (AUTO) 0.2 x10^3/uL (0.3-0.8); MONOCYTES % (AUTO) 2.4 % (0.0-13.0); NEUTROPHILS # (AUTO) 9.5 x10^3/uL (2.2-4.8); NEUTROPHILS % (AUTO) 92.4 % (42.0-75.0); PLATELET COUNT 171 X10^3/uL (150.0-450.0); RED CELL DISTRIBUTION WIDTH 13.6 % (11.6-16.5); WHITE BLOOD COUNT 10.3 X10^3/uL (3.6-10.0)
[2017-07-03 19:53] LABS: BAND NEUTROPHILS % 3 % (0-10); HYPOCHROMASIA SLIGHT; PLATELET MORPHOLOGY COMMENT NORMAL (NORMAL)
[2017-07-03] MEDS: VANCOMYCIN HCL 1 GM VIAL 1 GM in D5W 250 ML IV 250 ML IV SCH ×2 (21:00→21:01)
[2017-07-03] MEDS: AMBIEN PO SCH (21:01)
--- NOTE | 2017-07-04 00:01 | DR.PROGNOT ---
Hospital Progress Notes - Progress Note for Day of: Progress Note Date: 07/03/17 - Chief Complaint Chief Complaint: feeling much better after drainig more than 8 L of ascitic fluid. less pain and less SOB. catheter was removed with some drainage from the puncture site. - Past Medical Family Social History Past Med/Fam/Surg Hx: No changes since H&P Allergies: Allergies acetaminophen [From Lorcet (hydrocodone)] Allergy (Verified 06/27/17 11:04) codeine Allergy (Verified 06/27/17 11:04) hydrocodone [From Lorcet (hydrocodone)] Allergy (Verified 06/27/17 11:04) STEROID Allergy (Uncoded 06/27/17 15:14) - Review Of Systems ROS: No change since H&P - Vital Signs Vital Signs: Temperature 100.7 F Pulse Rate [Right Brachial] 100 Pulse Rate 90 Respiratory Rate 22 Blood Pressure [Left Arm] 122/57 Blood Pressure [Right Arm] 118/56 Blood Pressure 115/59 O2 Sat by Pulse Oximetry 96 - Physical Exam Oriented: Normal Eyes: Normal Ear: Normal Nose: Normal Throat: Normal Respiratory: Generalized, Diminished Cardiovascular: Edema (BILATERAL LOWER EXTREMITY 1+ PITTING EDEMA, SCROTAL EDEMA ) : Normal GI:Auscultation: Normal GI:Palpation: Other (distended abdomen with ascitis .. catheter in place and draining ..) GI: Tenderness: Normal Skin: Normal Musculoskeletal: Normal Psychiatric: Normal Mood Description: Calm Affect: Normal Speech Pattern: Clear, Appropriate - Laboratory and Diagnostics Result Diagrams: 07/03/17 19:08 07/03/17 04:50 Labs: 07/01/17 12:01 Ascities Fluid - Preliminary 06/27/17 15:40 Sputum - Expectorated Sputum Sputum Culture - Final 06/27/17 15:40 Sputum - Expectorated Sputum - Final Laboratory WBC 10.3 X10^3/uL (3.6-10.0) H 07/03/17 19:08 RBC 2.90 X10^6/uL (4.7-6.0) L 07/03/17 19:08 Hgb 10.2 g/dL (13.5-18.0) L 07/03/17 19:08 Hct 28.9 % (42.0-54.0) L 07/03/17 19:08 MCV 99.8 fL (80.0-100.0) 07/03/17 19:08 MCH 35.3 pg (27.0-34.0) H 07/03/17 19:08 MCHC 35.4 g/dL (33.0-35.0) H 07/03/17 19:08 RDW 13.6 % (11.6-16.5) 07/03/17 19: Plt Count 171 X10^3/uL (150.0-450.0) 07/03/17 19: Plt Count Comment Adequate (ADEQUATE) 07/03/17 19: MPV 8.2 fL (7.4-11.0) 07/03/17 19:08 Neut % (Auto) 92.4 % (42.0-75.0) H 07/03/17 19: Lymph % (Auto) 2.5 % (21.0-51.0) L 07/03/17 19:08 [place] % (Auto) 2.4 % (0.0-13.0) 07/03/17 19: Eos % (Auto) 2.2 % (0.9-2.9) 07/03/17 19:08 Baso % (Auto) 0.5 % (0.2-1.0) 07/03/17 19:08 Neut # (Auto) 9.5 x10^3/uL (2.2-4.8) H 07/03/17 19:08 Lymph # (Auto) 0.3 X10^3/uL (1.3-2.9) L 07/03/17 19:08 [place] # (Auto) 0.2 x10^3/uL (0.3-0.8) L 07/03/17 19:08 Eos # (Auto) 0.2 x10^3/uL (0.0-0.2) 07/03/17 19:08 Baso # (Auto) 0.1 X10^3/uL (0.0-0.1) 07/03/17 19:08 Absolute Nucleated RBC 0.0 /100WBC 07/03/17 19:08 Total Counted 100 07/03/17 19:08 Neutrophils % (Manual) 85 % (39-76) H 07/03/17 19:08 Band Neutrophils % 3 % (0-10) 07/03/17 19:08 Lymphocytes % (Manual) 6 % (13-43) L 07/03/17 19:08 Monocytes % (Manual) 4 % (4-9) 07/03/17 19:08 Eosinophils % (Manual) 2 % (0-6) 07/03/17 19:08 Plt Morphology Comment Normal (NORMAL) 07/03/17 19:08 RBC Morphology Abnormal (NORMAL) 07/03/17 19:08 Hypochromasia Slight A 07/03/17 19:08 INR Target Range - 07/02/17 04:49 INR 1.37 (0.8-1.3) H 07/02/17 04:49 APTT 36.9 SECONDS (22.9-36.5) H 07/02/17 04:49 PTT Comment - 07/02/17 04:49 D-Dimer > 5000 ng/mL (0-400) H* 06/27/17 11:45 Sodium 134 mmol/L (136-145) L 07/03/17 04:50 Corrected Sodium 135 mmol/L (136-145) L 07/03/17 04:50 Potassium 3.4 mmol/L (3.5-5.1) L 07/03/17 04:50 Chloride 100 mmol/L (98-107) 07/03/17 04:50 Carbon Dioxide 28.8 mmol/L (21-32) 07/03/17 04:50 BUN 17 mg/dL (7-18) 07/03/17 04:50 Creatinine 1.06 mg/dL (0.70-1.30) 07/03/17 04:50 Est GFR (MDRD) Af Amer > 60 (>60) 07/03/17 04:50 Est GFR (MDRD) Non-Af > 60 (>60) 07/03/17 04:50 Glucose 133 mg/dL (65-99) H 07/03/17 04:50 Calcium 7.2 mg/dL (8.5-10.1) L 07/03/17 04:50 Corrected Calcium 8.3 mg/dL (8.5-10.1) L 07/03/17 04:50 Total Bilirubin 0.90 mg/dL (0.2-1.0) 07/03/17 04:50 AST 32 Units/L (15-37) 07/03/17 04:50 ALT 36 Units/L (12-78) 07/03/17 04:50 Alkaline Phosphatase 78 Units/L (46-116) 07/03/17 04:50 Ammonia 26 umol/L (11-32) 07/02/17 04:49 Total Protein 5.6 g/dL (6.4-8.2) L 07/03/17 04:50 Albumin 2.6 g/dL (3.4-5.0) L 07/03/17 04:50 Globulin 3.0 g/dL (2.5-4.5) 07/03/17 04:50 Albumin/Globulin Ratio 0.9 Ratio (1.1-2.1) L 07/03/17 04:50 Triglycerides Cancelled 07/01/17 12:01 Cholesterol Cancelled 07/01/17 12:01 LDL Cholesterol, Calc Cancelled 07/01/17 12:01 HDL Cholesterol Cancelled 07/01/17 12:01 Cholesterol/HDL Ratio Cancelled 07/01/17 12:01 Amylase Cancelled 07/01/17 12:01 Lipase Cancelled 07/01/17 12:01 Cytology Specimen To follow 07/01/17 12:01 - Assessment and Plan 1: tense ascitis . liver cirhosis . h/o hepatitis c. if Pt is failing medical treatment of the ascitis then placement of longterm. peritoneal catheter could be arranged later on after all seapage from puncture site stops to avoid peritonitis, - Problem Patient Problems: Patient Problems Acute dyspnea (Acute) R06.00 Ascites (Acute) R18.8 Prerenal azotemia (Acute) R79.89 Scrotal edema (Acute) N50.89 COPD (chronic obstructive pulmonary disease) (Chronic) J44.9 Hepatitis C (Chronic) B19.20 Liver cirrhosis (Chronic) K74.60
[2017-07-04] MEDS: PROVENTIL NEB TX 0.083% 2.5MG/ 3ML NEB SCH ×3 (00:52→13:21)
[2017-07-04] MEDS ORDERED: MORPHINE SULFATE INJ 4 MG ONE ×2 (04:22→15:15)
[2017-07-04] MEDS: MORPHINE SULFATE INJ 2 MG INJ IVP PRN (04:25)
[2017-07-04] MEDS: ADVIL TAB 200 MG PO PRN ×2 (06:03→20:41)
[2017-07-04 06:24] LABS: BASOPHILS % (AUTO) 0.2 % (0.2-1.0); EOSINOPHILS # (AUTO) 0.1 x10^3/uL (0.0-0.2); EOSINOPHILS % (AUTO) 0.6 % (0.9-2.9); HEMATOCRIT 24.6 % (42.0-54.0); HEMOGLOBIN 8.8 g/dL (13.5-18.0); LYMPHOCYTES # (AUTO) 0.2 X10^3/uL (1.3-2.9); LYMPHOCYTES % (AUTO) 1.6 % (21.0-51.0); MEAN CORPUSCULAR HEMOGLOBIN 35.6 pg (27.0-34.0); MEAN CORPUSCULAR HGB CONC 35.9 g/dL (33.0-35.0); MEAN CORPUSCULAR VOLUME 99.1 fL (80.0-100.0); MEAN PLATELET VOLUME 8.6 fL (7.4-11.0); MONOCYTES # (AUTO) 1.2 x10^3/uL (0.3-0.8); MONOCYTES % (AUTO) 8.3 % (0.0-13.0); NEUTROPHILS # (AUTO) 12.9 x10^3/uL (2.2-4.8); NEUTROPHILS % (AUTO) 89.3 % (42.0-75.0); PLATELET COUNT 136 X10^3/uL (150.0-450.0); RED BLOOD COUNT 2.48 X10^6/uL (4.7-6.0); RED CELL DISTRIBUTION WIDTH 13.2 % (11.6-16.5); WHITE BLOOD COUNT 14.5 X10^3/uL (3.6-10.0)
[2017-07-04 06:47] LABS: ALANINE AMINOTRANSFERASE 37 Units/L (12-78); ALBUMIN 2.7 g/dL (3.4-5.0); ALKALINE PHOSPHATASE 106 Units/L (46-116); ASPARTATE AMINO TRANSFERASE 42 Units/L (15-37); BLOOD UREA NITROGEN 21 mg/dL (7-18); CALCIUM 7.4 mg/dL (8.5-10.1); CHLORIDE 98 mmol/L (98-107); COR CA(FOR HYPOALB) 8.4 mg/dL (8.5-10.1); COR NA(FOR HYPERGLY) 132 mmol/L (136-145); CREATININE 1.49 mg/dL (0.70-1.30); SODIUM 132 mmol/L (136-145); TOTAL PROTEIN 5.7 g/dL (6.4-8.2); eGFR BLACK RACES > 60 (>60); eGFR NON BLACK RACES 50 (>60)
[2017-07-04] MEDS: ALBUMIN HUMAN 25%- 100ML 100 ML IV SCH (09:00)
[2017-07-04] MEDS: MAG-OX TAB PO SCH (09:00)
[2017-07-04] MEDS: MICRO K EXTEN CAP 10 MEQ PO SCH (09:00)
[2017-07-04] MEDS: VANCOMYCIN HCL 1 GM VIAL 1 GM in D5W 250 ML IV 250 ML IV SCH ×2 (09:00→20:43)
[2017-07-04] MEDS: CHRONULAC PO SCH ×2 (09:01→20:42)
[2017-07-04] MEDS: NICOTINE PATCH TD SCH (09:01)
[2017-07-04] MEDS: ALDACTONE TAB 25 MG PO SCH (09:02)
[2017-07-04] MEDS: LASIX IVP SCH (09:02)
[2017-07-04] MEDS: ZOSYN VIAL 3.375 GM 3.375 GM in NS 100 ML IV + SPIKE MINIBAG* 100 ML IV SCH ×3 (11:43→22:31)
[2017-07-04] MEDS: NS 1000 ML 1,000 ML IV SCH ×2 (11:43→20:40)
[2017-07-04] MEDS: MORPHINE SULFATE INJ 4 MG IVP PRN (15:25)
[2017-07-04] MEDS: MYLICON TAB 80 MG CHEW PO PRN (15:30)
--- NOTE | 2017-07-04 20:17 | PCM.PROG ---
Progress Note - Progress Note for Day of Date: 07/01/17 - Subjective Subjective: WAS ADMITTED FOR DYSPNEA, PRERENAL AZOTEMIA, AND GENERALIZED SWELLING. TODAY, HE IS ALERT AND ORIENTED, LYING IN BED ON MORNING ROUNDS. HE CONTINUES WITH SHORTNESS OF BREATH, ABDOMINAL DISTENTION, AND GENERALIZED SWELLING. BILATERAL LOWER EXTREMITIES CONTINUE WITH 1+ PITTING EDEMA. EXAMINATION REVEALS SCATTERED WHEEZING TO BILATERAL LUNGS. ABDOMEN CONTINUES WITH MODERATE DISTENTION AND MILD, DIFFUSE TENDERNESS. HIS VITALS THIS MORNING ARE 98.2-84-20-97%-101/56. ABNORMAL LAB VALUES INCLUDE THE FOLLOWING: RBC 2.51, HGB 9.2, HCT 25.2, PLT COUNT 128, BUN 23, GLUCOSE 111, CALCIUM 7.3, AST 47, TOTAL PROTEIN 6.1, ALBUMIN 2.7. AN ABDOMEN ULTRASOUND WAS OBTAINED YESTERDAY AND REVEALED MODERATELY SEVERE ASCITES, CHOLELITHIASIS. TODAY , WE WILL CONTINUE WITH LASIX AND CURRENT PLAN OF CARE. WE WILL CONSULT FOR PARACENTESIS. OTHERWISE, WE WILL FOLLOW UP WITH AM LABS AND CONTINUE TO MONITOR PATIENT. - Past Medical Family Social History Past Med/Fam/Surg Hx: No changes since H&P Allergies: Allergies acetaminophen [From Lorcet (hydrocodone)] Allergy (Verified 06/27/17 11:04) codeine Allergy (Verified 06/27/17 11:04) hydrocodone [From Lorcet (hydrocodone)] Allergy (Verified 06/27/17 11:04) STEROID Allergy (Uncoded 06/27/17 15:14) - Review of Systems ROS: No change since H&P - Vital Signs and I&O's Vital Signs: Temperature 98.6 F Pulse Rate [Right Brachial] 92 Pulse Rate 88 Respiratory Rate 22 Blood Pressure [Left Arm] 122/51 Blood Pressure [Right Arm] 78/58 Blood Pressure 115/59 O2 Sat by Pulse Oximetry 94 Intake and Output: Intake & Output 07/02/17 07/03/17 07/04/17 07/05/17 11:59 11:59 11:59 11:59 Intake Total 1220 2410 3190 920 Output Total 3510 5000 2000 120 Balance -2290 -2590 1190 800 - Physical Exam Oriented: Normal Eyes: Normal Ear: Normal Nose: Normal Throat: Normal Respiratory: Generalized, Diminished Cardiovascular: Edema (BILATERAL LOWER EXTREMITY 1+ PITTING EDEMA, SCROTAL EDEMA ) : Normal Auscultation: Bowel Sounds: Normal Palpation: Normal Tenderness: Diffuse, Mild Skin: Normal Musculoskeletal: Normal Psychiatric: Normal Mood Description: Calm Affect: Normal Speech Pattern: Clear, Appropriate - Laboratory and Diagnostics Result Diagrams: 07/04/17 04:46 07/04/17 04:46 Labs: 07/01/17 12:01 Ascities Fluid - Preliminary 06/27/17 15:40 Sputum - Expectorated Sputum Sputum Culture - Final 06/27/17 15:40 Sputum - Expectorated Sputum - Final Laboratory WBC 14.5 X10^3/uL (3.6-10.0) H 07/04/17 04:46 RBC 2.48 X10^6/uL (4.7-6.0) L 07/04/17 04:46 Hgb 8.8 g/dL (13.5-18.0) L 07/04/17 04:46 Hct 24.6 % (42.0-54.0) L 07/04/17 04:46 MCV 99.1 fL (80.0-100.0) 07/04/17 04:46 MCH 35.6 pg (27.0-34.0) H 07/04/17 04:46 MCHC 35.9 g/dL (33.0-35.0) H 07/04/17 04:46 RDW 13.2 % (11.6-16.5) 07/04/17 04:46 Plt Count 136 X10^3/uL (150.0-450.0) L 07/04/17 04:46 Plt Count Comment Adequate (ADEQUATE) 07/03/17 19:08 MPV 8.6 fL (7.4-11.0) 07/04/17 04:46 Neut % (Auto) 89.3 % (42.0-75.0) H 07/04/17 04:46 Lymph % (Auto) 1.6 % (21.0-51.0) L 07/04/17 04:46 [place] % (Auto) 8.3 % (0.0-13.0) 07/04/17 04:46 Eos % (Auto) 0.6 % (0.9-2.9) L 07/04/17 04:46 Baso % (Auto) 0.2 % (0.2-1.0) 07/04/17 04:46 Neut # (Auto) 12.9 x10^3/uL (2.2-4.8) H 07/04/17 04:46 Lymph # (Auto) 0.2 X10^3/uL (1.3-2.9) L 07/04/17 04:46 [place] # (Auto) 1.2 x10^3/uL (0.3-0.8) H 07/04/17 04:46 Eos # (Auto) 0.1 x10^3/uL (0.0-0.2) 07/04/17 04:46 Baso # (Auto) 0.0 X10^3/uL (0.0-0.1) 07/04/17 04:46 Absolute Nucleated RBC 0.0 /100WBC 07/04/17 04:46 Total Counted 100 07/03/17 19:08 Neutrophils % (Manual) 85 % (39-76) H 07/03/17 19:08 Band Neutrophils % 3 % (0-10) 07/03/17 19:08 Lymphocytes % (Manual) 6 % (13-43) L 07/03/17 19:08 Monocytes % (Manual) 4 % (4-9) 07/03/17 19:08 Eosinophils % (Manual) 2 % (0-6) 07/03/17 19:08 Plt Morphology Comment Normal (NORMAL) 07/03/17 19:08 RBC Morphology Abnormal (NORMAL) 07/03/17 19:08 Hypochromasia Slight A 07/03/17 19:08 INR Target Range - 07/02/17 04:49 INR 1.37 (0.8-1.3) H 07/02/17 04:49 APTT 36.9 SECONDS (22.9-36.5) H 07/02/17 04:49 PTT Comment - 07/02/17 04:49 D-Dimer > 5000 ng/mL (0-400) H* 06/27/17 11:45 Sodium 132 mmol/L (136-145) L 07/04/17 04:46 Corrected Sodium 132 mmol/L (136-145) L 07/04/17 04:46 Potassium 3.7 mmol/L (3.5-5.1) 07/04/17 04:46 Chloride 98 mmol/L (98-107) 07/04/17 04:46 Carbon Dioxide 26.0 mmol/L (21-32) 07/04/17 04:46 BUN 21 mg/dL (7-18) H 07/04/17 04:46 Creatinine 1.49 mg/dL (0.70-1.30) H 07/04/17 04:46 Est GFR (MDRD) Af Amer > 60 (>60) 07/04/17 04:46 Est GFR (MDRD) Non-Af 50 (>60) L 07/04/17 04:46 Glucose 113 mg/dL (65-99) H 07/04/17 04:46 Calcium 7.4 mg/dL (8.5-10.1) L 07/04/17 04:46 Corrected Calcium 8.4 mg/dL (8.5-10.1) L 07/04/17 04:46 Total Bilirubin 1.00 mg/dL (0.2-1.0) 07/04/17 04:46 AST 42 Units/L (15-37) H 07/04/17 04:46 ALT 37 Units/L (12-78) 07/04/17 04:46 Alkaline Phosphatase 106 Units/L (46-116) 07/04/17 04:46 Ammonia 26 umol/L (11-32) 07/02/17 04:49 Total Protein 5.7 g/dL (6.4-8.2) L 07/04/17 04:46 Albumin 2.7 g/dL (3.4-5.0) L 07/04/17 04:46 Globulin 3.0 g/dL (2.5-4.5) 07/04/17 04:46 Albumin/Globulin Ratio 0.9 Ratio (1.1-2.1) L 07/04/17 04:46 Triglycerides Cancelled 07/01/17 12:01 Cholesterol Cancelled 07/01/17 12:01 LDL Cholesterol, Calc Cancelled 07/01/17 12:01 HDL Cholesterol Cancelled 07/01/17 12:01 Cholesterol/HDL Ratio Cancelled 07/01/17 12:01 Amylase Cancelled 07/01/17 12:01 Lipase Cancelled 07/01/17 12:01 Cytology Specimen To follow 07/01/17 12:01 - Plan (1) Acute dyspnea Status: Acute Plan: ADMIT, RESPIRATORY TREATMENTS, LASIX 40MG IV BID, CONTINUE TO MONITOR (2) Ascites Status: Acute Qualifiers: Ascites type: other type Qualified Code(s): R18.8 - Other ascites (3) Prerenal azotemia Status: Acute (4) Scrotal edema Status: Acute
--- NOTE | 2017-07-04 20:18 | PCM.PROG ---
Progress Note - Progress Note for Day of Date: 07/02/17 - Subjective Subjective: WAS ADMITTED FOR DYSPNEA, PRERENAL AZOTEMIA, AND GENERALIZED SWELLING. TODAY, HE IS ALERT AND ORIENTED, LYING IN BED ON MORNING ROUNDS. HE CONTINUES WITH SHORTNESS OF BREATH, ABDOMINAL DISTENTION, AND GENERALIZED SWELLING. CONSULTED WITH PATIENT YESTERDAY AND PERFORMED A PARACENTESIS AT BEDSIDE. ON EXAMINATION, THERE IS A CATHETER TO THE ABDOMEN NOTED TO BE CONNECTED TO A VACUUM BOTTLE. BILATERAL LOWER EXTREMITIES CONTINUE WITH 1+ PITTING EDEMA. EXAMINATION REVEALS SCATTERED WHEEZING TO BILATERAL LUNGS. ABDOMEN CONTINUES WITH MODERATE DISTENTION AND MILD, DIFFUSE TENDERNESS. HIS VITALS THIS MORNING ARE 98.7-92-20-92%-91/55. ABNORMAL LAB VALUES INCLUDE THE FOLLOWING: RBC 2.47, HGB 9.0, HCT 24.6, PLT COUNT 127, BUN 19, CALCIUM 7.3, AST 40, TOTAL PROTEIN 5.8, ALBUMIN 2.5. TODAY, WE WILL CONTINUE WITH CURRENT PLAN OF CARE. OTHERWISE, WE WILL FOLLOW UP WITH AM LABS AND CONTINUE TO MONITOR PATIENT. - Past Medical Family Social History Past Med/Fam/Surg Hx: No changes since H&P Allergies: Allergies acetaminophen [From Lorcet (hydrocodone)] Allergy (Verified 06/27/17 11:04) codeine Allergy (Verified 06/27/17 11:04) hydrocodone [From Lorcet (hydrocodone)] Allergy (Verified 06/27/17 11:04) STEROID Allergy (Uncoded 06/27/17 15:14) - Review of Systems ROS: No change since H&P - Vital Signs and I&O's Vital Signs: Temperature 98.6 F Pulse Rate [Right Brachial] 92 Pulse Rate 88 Respiratory Rate 22 Blood Pressure [Left Arm] 122/51 Blood Pressure [Right Arm] 78/58 Blood Pressure 115/59 O2 Sat by Pulse Oximetry 94 Intake and Output: Intake & Output 07/02/17 07/03/17 07/04/17 07/05/17 11:59 11:59 11:59 11:59 Intake Total 1220 2410 3190 920 Output Total 3510 5000 2000 120 Balance -2290 -2590 1190 800 - Physical Exam Oriented: Normal Eyes: Normal Ear: Normal Nose: Normal Throat: Normal Respiratory: Generalized, Diminished Cardiovascular: Edema (BILATERAL LOWER EXTREMITY 1+ PITTING EDEMA, SCROTAL EDEMA ) : Normal Auscultation: Bowel Sounds: Normal Palpation: Normal Tenderness: Diffuse, Mild Skin: Normal Musculoskeletal: Normal Psychiatric: Normal Mood Description: Calm Affect: Normal Speech Pattern: Clear, Appropriate - Laboratory and Diagnostics Result Diagrams: 07/04/17 04:46 07/04/17 04:46 Labs: 07/01/17 12:01 Ascities Fluid - Preliminary 06/27/17 15:40 Sputum - Expectorated Sputum Sputum Culture - Final 06/27/17 15:40 Sputum - Expectorated Sputum - Final Laboratory WBC 14.5 X10^3/uL (3.6-10.0) H 07/04/17 04:46 RBC 2.48 X10^6/uL (4.7-6.0) L 07/04/17 04:46 Hgb 8.8 g/dL (13.5-18.0) L 07/04/17 04:46 Hct 24.6 % (42.0-54.0) L 07/04/17 04:46 MCV 99.1 fL (80.0-100.0) 07/04/17 04:46 MCH 35.6 pg (27.0-34.0) H 07/04/17 04:46 MCHC 35.9 g/dL (33.0-35.0) H 07/04/17 04:46 RDW 13.2 % (11.6-16.5) 07/04/17 04:46 Plt Count 136 X10^3/uL (150.0-450.0) L 07/04/17 04:46 Plt Count Comment Adequate (ADEQUATE) 07/03/17 19:08 MPV 8.6 fL (7.4-11.0) 07/04/17 04:46 Neut % (Auto) 89.3 % (42.0-75.0) H 07/04/17 04:46 Lymph % (Auto) 1.6 % (21.0-51.0) L 07/04/17 04:46 [place] % (Auto) 8.3 % (0.0-13.0) 07/04/17 04:46 Eos % (Auto) 0.6 % (0.9-2.9) L 07/04/17 04:46 Baso % (Auto) 0.2 % (0.2-1.0) 07/04/17 04:46 Neut # (Auto) 12.9 x10^3/uL (2.2-4.8) H 07/04/17 04:46 Lymph # (Auto) 0.2 X10^3/uL (1.3-2.9) L 07/04/17 04:46 [place] # (Auto) 1.2 x10^3/uL (0.3-0.8) H 07/04/17 04:46 Eos # (Auto) 0.1 x10^3/uL (0.0-0.2) 07/04/17 04:46 Baso # (Auto) 0.0 X10^3/uL (0.0-0.1) 07/04/17 04:46 Absolute Nucleated RBC 0.0 /100WBC 07/04/17 04:46 Total Counted 100 07/03/17 19:08 Neutrophils % (Manual) 85 % (39-76) H 07/03/17 19:08 Band Neutrophils % 3 % (0-10) 07/03/17 19:08 Lymphocytes % (Manual) 6 % (13-43) L 07/03/17 19:08 Monocytes % (Manual) 4 % (4-9) 07/03/17 19:08 Eosinophils % (Manual) 2 % (0-6) 07/03/17 19:08 Plt Morphology Comment Normal (NORMAL) 07/03/17 19:08 RBC Morphology Abnormal (NORMAL) 07/03/17 19:08 Hypochromasia Slight A 07/03/17 19:08 INR Target Range - 07/02/17 04:49 INR 1.37 (0.8-1.3) H 07/02/17 04:49 APTT 36.9 SECONDS (22.9-36.5) H 07/02/17 04:49 PTT Comment - 07/02/17 04:49 D-Dimer > 5000 ng/mL (0-400) H* 06/27/17 11:45 Sodium 132 mmol/L (136-145) L 07/04/17 04:46 Corrected Sodium 132 mmol/L (136-145) L 07/04/17 04:46 Potassium 3.7 mmol/L (3.5-5.1) 07/04/17 04:46 Chloride 98 mmol/L (98-107) 07/04/17 04:46 Carbon Dioxide 26.0 mmol/L (21-32) 07/04/17 04:46 BUN 21 mg/dL (7-18) H 07/04/17 04:46 Creatinine 1.49 mg/dL (0.70-1.30) H 07/04/17 04:46 Est GFR (MDRD) Af Amer > 60 (>60) 07/04/17 04:46 Est GFR (MDRD) Non-Af 50 (>60) L 07/04/17 04:46 Glucose 113 mg/dL (65-99) H 07/04/17 04:46 Calcium 7.4 mg/dL (8.5-10.1) L 07/04/17 04:46 Corrected Calcium 8.4 mg/dL (8.5-10.1) L 07/04/17 04:46 Total Bilirubin 1.00 mg/dL (0.2-1.0) 07/04/17 04:46 AST 42 Units/L (15-37) H 07/04/17 04:46 ALT 37 Units/L (12-78) 07/04/17 04:46 Alkaline Phosphatase 106 Units/L (46-116) 07/04/17 04:46 Ammonia 26 umol/L (11-32) 07/02/17 04:49 Total Protein 5.7 g/dL (6.4-8.2) L 07/04/17 04:46 Albumin 2.7 g/dL (3.4-5.0) L 07/04/17 04:46 Globulin 3.0 g/dL (2.5-4.5) 07/04/17 04:46 Albumin/Globulin Ratio 0.9 Ratio (1.1-2.1) L 07/04/17 04:46 Triglycerides Cancelled 07/01/17 12:01 Cholesterol Cancelled 07/01/17 12:01 LDL Cholesterol, Calc Cancelled 07/01/17 12:01 HDL Cholesterol Cancelled 07/01/17 12:01 Cholesterol/HDL Ratio Cancelled 07/01/17 12:01 Amylase Cancelled 07/01/17 12:01 Lipase Cancelled 07/01/17 12:01 Cytology Specimen To follow 07/01/17 12:01 - Plan (1) Acute dyspnea Status: Acute Plan: ADMIT, RESPIRATORY TREATMENTS, LASIX 40MG IV BID, CONTINUE TO MONITOR (2) Ascites Status: Acute Qualifiers: Ascites type: other type Qualified Code(s): R18.8 - Other ascites Plan: STATUS POST PARACENTESIS, CONTINUE TO MONITOR (3) Prerenal azotemia Status: Acute (4) Scrotal edema Status: Acute
--- NOTE | 2017-07-04 20:41 | PCM.PROG ---
Progress Note - Progress Note for Day of Date: 07/03/17 - Subjective Subjective: WAS ADMITTED FOR DYSPNEA, PRERENAL AZOTEMIA, AND GENERALIZED SWELLING. TODAY, HE IS ALERT AND ORIENTED, LYING IN BED ON MORNING ROUNDS. HE CONTINUES WITH SHORTNESS OF BREATH AND GENERALIZED SWELLING, BUT REPORTS IMPROVEMENT SINCE PARACENTESIS. ON EXAMINATION, THERE IS A CATHETER TO THE ABDOMEN. IT IS NOT CONNECTED TO VACUUM BOTTLE AT THIS TIME. BILATERAL LOWER EXTREMITIES CONTINUE WITH TRACE EDEMA. EXAMINATION REVEALS SCATTERED WHEEZING TO BILATERAL LUNGS. ABDOMEN CONTINUES WITH MODERATE DISTENTION AND MILD, DIFFUSE TENDERNESS. HIS VITALS THIS MORNING ARE 98.4-97-18-93%-102/52. ABNORMAL LAB VALUES INCLUDE THE FOLLOWING: WBC 10.3, RBC 2.90, HGB 10.2, HCT 28.9, SODIUM 134, GLUCOSE 133, CALCIUM 7.2, TOTAL PROTEIN 5.6, ALBUMIN 2.6. APPROXIMATELY 3.5 LITERS HAVE BEEN DRAINED OFF OF ABDOMEN SINCE CATHETER WAS INSERTED. TODAY, WE WILL CONTINUE WITH CURRENT PLAN OF CARE. OTHERWISE, WE WILL FOLLOW UP WITH AM LABS AND CONTINUE TO MONITOR PATIENT. - Past Medical Family Social History Past Med/Fam/Surg Hx: No changes since H&P Allergies: Allergies acetaminophen [From Lorcet (hydrocodone)] Allergy (Verified 06/27/17 11:04) codeine Allergy (Verified 06/27/17 11:04) hydrocodone [From Lorcet (hydrocodone)] Allergy (Verified 06/27/17 11:04) STEROID Allergy (Uncoded 06/27/17 15:14) - Review of Systems ROS: No change since H&P - Vital Signs and I&O's Vital Signs: Temperature 100 F Pulse Rate [Right Brachial] 89 Pulse Rate 88 Respiratory Rate 18 Blood Pressure [Left Arm] 120/58 Blood Pressure [Right Arm] 78/58 Blood Pressure 115/59 O2 Sat by Pulse Oximetry 96 Intake and Output: Intake & Output 07/02/17 07/03/17 07/04/17 07/05/17 11:59 11:59 11:59 11:59 Intake Total 1220 2410 3190 920 Output Total 3510 5000 2000 120 Balance -2290 -2590 1190 800 - Physical Exam Oriented: Normal Eyes: Normal Ear: Normal Nose: Normal Throat: Normal Respiratory: Generalized, Diminished Cardiovascular: Edema (BILATERAL LOWER EXTREMITY 1+ PITTING EDEMA, SCROTAL EDEMA ) : Normal Auscultation: Bowel Sounds: Normal Palpation: Normal Tenderness: Diffuse, Mild Skin: Normal Musculoskeletal: Normal Psychiatric: Normal Mood Description: Calm Affect: Normal Speech Pattern: Clear, Appropriate - Laboratory and Diagnostics Result Diagrams: 07/04/17 04:46 07/04/17 04:46 Labs: 07/01/17 12:01 Ascities Fluid - Preliminary 06/27/17 15:40 Sputum - Expectorated Sputum Sputum Culture - Final 06/27/17 15:40 Sputum - Expectorated Sputum - Final Laboratory WBC 14.5 X10^3/uL (3.6-10.0) H 07/04/17 04:46 RBC 2.48 X10^6/uL (4.7-6.0) L 07/04/17 04:46 Hgb 8.8 g/dL (13.5-18.0) L 07/04/17 04:46 Hct 24.6 % (42.0-54.0) L 07/04/17 04:46 MCV 99.1 fL (80.0-100.0) 07/04/17 04:46 MCH 35.6 pg (27.0-34.0) H 07/04/17 04:46 MCHC 35.9 g/dL (33.0-35.0) H 07/04/17 04:46 RDW 13.2 % (11.6-16.5) 07/04/17 04:46 Plt Count 136 X10^3/uL (150.0-450.0) L 07/04/17 04:46 Plt Count Comment Adequate (ADEQUATE) 07/03/17 19:08 MPV 8.6 fL (7.4-11.0) 07/04/17 04:46 Neut % (Auto) 89.3 % (42.0-75.0) H 07/04/17 04:46 Lymph % (Auto) 1.6 % (21.0-51.0) L 07/04/17 04:46 [place] % (Auto) 8.3 % (0.0-13.0) 07/04/17 04:46 Eos % (Auto) 0.6 % (0.9-2.9) L 07/04/17 04:46 Baso % (Auto) 0.2 % (0.2-1.0) 07/04/17 04:46 Neut # (Auto) 12.9 x10^3/uL (2.2-4.8) H 07/04/17 04:46 Lymph # (Auto) 0.2 X10^3/uL (1.3-2.9) L 07/04/17 04:46 [place] # (Auto) 1.2 x10^3/uL (0.3-0.8) H 07/04/17 04:46 Eos # (Auto) 0.1 x10^3/uL (0.0-0.2) 07/04/17 04:46 Baso # (Auto) 0.0 X10^3/uL (0.0-0.1) 07/04/17 04:46 Absolute Nucleated RBC 0.0 /100WBC 07/04/17 04:46 Total Counted 100 07/03/17 19:08 Neutrophils % (Manual) 85 % (39-76) H 07/03/17 19:08 Band Neutrophils % 3 % (0-10) 07/03/17 19:08 Lymphocytes % (Manual) 6 % (13-43) L 07/03/17 19:08 Monocytes % (Manual) 4 % (4-9) 07/03/17 19:08 Eosinophils % (Manual) 2 % (0-6) 07/03/17 19:08 Plt Morphology Comment Normal (NORMAL) 07/03/17 19:08 RBC Morphology Abnormal (NORMAL) 07/03/17 19:08 Hypochromasia Slight A 07/03/17 19:08 INR Target Range - 07/02/17 04:49 INR 1.37 (0.8-1.3) H 07/02/17 04:49 APTT 36.9 SECONDS (22.9-36.5) H 07/02/17 04:49 PTT Comment - 07/02/17 04:49 D-Dimer > 5000 ng/mL (0-400) H* 06/27/17 11:45 Sodium 132 mmol/L (136-145) L 07/04/17 04:46 Corrected Sodium 132 mmol/L (136-145) L 07/04/17 04:46 Potassium 3.7 mmol/L (3.5-5.1) 07/04/17 04:46 Chloride 98 mmol/L (98-107) 07/04/17 04:46 Carbon Dioxide 26.0 mmol/L (21-32) 07/04/17 04:46 BUN 21 mg/dL (7-18) H 07/04/17 04:46 Creatinine 1.49 mg/dL (0.70-1.30) H 07/04/17 04:46 Est GFR (MDRD) Af Amer > 60 (>60) 07/04/17 04:46 Est GFR (MDRD) Non-Af 50 (>60) L 07/04/17 04:46 Glucose 113 mg/dL (65-99) H 07/04/17 04:46 Calcium 7.4 mg/dL (8.5-10.1) L 07/04/17 04:46 Corrected Calcium 8.4 mg/dL (8.5-10.1) L 07/04/17 04:46 Total Bilirubin 1.00 mg/dL (0.2-1.0) 07/04/17 04:46 AST 42 Units/L (15-37) H 07/04/17 04:46 ALT 37 Units/L (12-78) 07/04/17 04:46 Alkaline Phosphatase 106 Units/L (46-116) 07/04/17 04:46 Ammonia 26 umol/L (11-32) 07/02/17 04:49 Total Protein 5.7 g/dL (6.4-8.2) L 07/04/17 04:46 Albumin 2.7 g/dL (3.4-5.0) L 07/04/17 04:46 Globulin 3.0 g/dL (2.5-4.5) 07/04/17 04:46 Albumin/Globulin Ratio 0.9 Ratio (1.1-2.1) L 07/04/17 04:46 Triglycerides Cancelled 07/01/17 12:01 Cholesterol Cancelled 07/01/17 12:01 LDL Cholesterol, Calc Cancelled 07/01/17 12:01 HDL Cholesterol Cancelled 07/01/17 12:01 Cholesterol/HDL Ratio Cancelled 07/01/17 12:01 Amylase Cancelled 07/01/17 12:01 Lipase Cancelled 07/01/17 12:01 Cytology Specimen To follow 07/01/17 12:01 - Plan (1) Acute dyspnea Status: Acute Plan: ADMIT, RESPIRATORY TREATMENTS, LASIX 40MG IV BID, CONTINUE TO MONITOR (2) Ascites Status: Acute Qualifiers: Ascites type: other type Qualified Code(s): R18.8 - Other ascites Plan: STATUS POST PARACENTESIS, CONTINUE TO MONITOR (3) Prerenal azotemia Status: Acute (4) Scrotal edema Status: Acute
[2017-07-04] MEDS: AMBIEN PO SCH (20:42)
--- NOTE | 2017-07-04 20:49 | PCM.PROG ---
Progress Note - Progress Note for Day of Date: 07/04/17 - Subjective Subjective: WAS ADMITTED FOR DYSPNEA, PRERENAL AZOTEMIA, AND GENERALIZED SWELLING. TODAY, HE IS ALERT AND ORIENTED, LYING IN BED ON MORNING ROUNDS. HE REPORTS GENERALIZED WEAKNESS THIS MORNING. CATHETER REMAINS TO ABDOMEN WITH A COLOSTOMY BAG NOTED TO BE SURROUNDING CATHETER TO COLLECT DRAINAGE. BILATERAL LOWER EXTREMITIES CONTINUE WITH TRACE EDEMA. EXAMINATION REVEALS SCATTERED WHEEZING TO BILATERAL LUNGS. ABDOMEN CONTINUES WITH MODERATE DISTENTION AND MILD, DIFFUSE TENDERNESS. HIS VITALS THIS MORNING ARE 100.1, 100- 20-96%-78/58. ABNORMAL LAB VALUES INCLUDE THE FOLLOWING: WBC 14.5, RBC 2.48, HGB 8.8, HCT 24.6, SODIUM 132, BUN 21, CREATININE 1.49, GLUCOSE 113, CALCIUM 7.4 , AST 42, TOTAL PROTEIN 5.7, ALBUMIN 2.7. APPROXIMATELY 1500 ML HAS DRAINED FROM ABDOMEN SINCE YESTERDAY. HE IS CURRENTLY RECEIVING VANCOMYCIN. WE WILL DISCONTINUE VANCOMYCIN TODAY AND START ZOSYN. WE WILL ALSO START NORMAL SALINE AT 125ML/HR AND HOLD LASIX AND ALDACTONE DUE TO DECREASED BLOOD PRESSURE. OTHERWISE, WE WILL FOLLOW UP WITH AM LABS AND CONTINUE TO MONITOR PATIENT. - Past Medical Family Social History Past Med/Fam/Surg Hx: No changes since H&P Allergies: Allergies acetaminophen [From Lorcet (hydrocodone)] Allergy (Verified 06/27/17 11:04) codeine Allergy (Verified 06/27/17 11:04) hydrocodone [From Lorcet (hydrocodone)] Allergy (Verified 06/27/17 11:04) STEROID Allergy (Uncoded 06/27/17 15:14) - Review of Systems ROS: No change since H&P - Vital Signs and I&O's Vital Signs: Temperature 100 F Pulse Rate [Right Brachial] 89 Pulse Rate 88 Respiratory Rate 18 Blood Pressure [Left Arm] 120/58 Blood Pressure [Right Arm] 78/58 Blood Pressure 115/59 O2 Sat by Pulse Oximetry 96 Intake and Output: Intake & Output 07/02/17 07/03/17 07/04/17 07/05/17 11:59 11:59 11:59 11:59 Intake Total 1220 2410 3190 920 Output Total 3510 5000 2000 120 Balance -2290 -2590 1190 800 - Physical Exam Oriented: Normal Eyes: Normal Ear: Normal Nose: Normal Throat: Normal Respiratory: Generalized, Diminished Cardiovascular: Edema : Normal Auscultation: Bowel Sounds: Normal Palpation: Normal Tenderness: Diffuse, Mild Skin: Normal Musculoskeletal: Normal Psychiatric: Normal Mood Description: Calm Affect: Normal Speech Pattern: Clear, Appropriate - Laboratory and Diagnostics Result Diagrams: 07/04/17 04:46 07/04/17 04:46 Labs: 07/01/17 12:01 Ascities Fluid - Preliminary 06/27/17 15:40 Sputum - Expectorated Sputum Sputum Culture - Final 06/27/17 15:40 Sputum - Expectorated Sputum - Final Laboratory WBC 14.5 X10^3/uL (3.6-10.0) H 07/04/17 04:46 RBC 2.48 X10^6/uL (4.7-6.0) L 07/04/17 04:46 Hgb 8.8 g/dL (13.5-18.0) L 07/04/17 04:46 Hct 24.6 % (42.0-54.0) L 07/04/17 04:46 MCV 99.1 fL (80.0-100.0) 07/04/17 04:46 MCH 35.6 pg (27.0-34.0) H 07/04/17 04:46 MCHC 35.9 g/dL (33.0-35.0) H 07/04/17 04:46 RDW 13.2 % (11.6-16.5) 07/04/17 04:46 Plt Count 136 X10^3/uL (150.0-450.0) L 07/04/17 04:46 Plt Count Comment Adequate (ADEQUATE) 07/03/17 19:08 MPV 8.6 fL (7.4-11.0) 07/04/17 04:46 Neut % (Auto) 89.3 % (42.0-75.0) H 07/04/17 04:46 Lymph % (Auto) 1.6 % (21.0-51.0) L 07/04/17 04:46 [place] % (Auto) 8.3 % (0.0-13.0) 07/04/17 04:46 Eos % (Auto) 0.6 % (0.9-2.9) L 07/04/17 04:46 Baso % (Auto) 0.2 % (0.2-1.0) 07/04/17 04:46 Neut # (Auto) 12.9 x10^3/uL (2.2-4.8) H 07/04/17 04:46 Lymph # (Auto) 0.2 X10^3/uL (1.3-2.9) L 07/04/17 04:46 [place] # (Auto) 1.2 x10^3/uL (0.3-0.8) H 07/04/17 04:46 Eos # (Auto) 0.1 x10^3/uL (0.0-0.2) 07/04/17 04:46 Baso # (Auto) 0.0 X10^3/uL (0.0-0.1) 07/04/17 04:46 Absolute Nucleated RBC 0.0 /100WBC 07/04/17 04:46 Total Counted 100 07/03/17 19:08 Neutrophils % (Manual) 85 % (39-76) H 07/03/17 19:08 Band Neutrophils % 3 % (0-10) 07/03/17 19:08 Lymphocytes % (Manual) 6 % (13-43) L 07/03/17 19:08 Monocytes % (Manual) 4 % (4-9) 07/03/17 19:08 Eosinophils % (Manual) 2 % (0-6) 07/03/17 19:08 Plt Morphology Comment Normal (NORMAL) 07/03/17 19:08 RBC Morphology Abnormal (NORMAL) 07/03/17 19:08 Hypochromasia Slight A 07/03/17 19:08 INR Target Range - 07/02/17 04:49 INR 1.37 (0.8-1.3) H 07/02/17 04:49 APTT 36.9 SECONDS (22.9-36.5) H 07/02/17 04:49 PTT Comment - 07/02/17 04:49 D-Dimer > 5000 ng/mL (0-400) H* 06/27/17 11:45 Sodium 132 mmol/L (136-145) L 07/04/17 04:46 Corrected Sodium 132 mmol/L (136-145) L 07/04/17 04:46 Potassium 3.7 mmol/L (3.5-5.1) 07/04/17 04:46 Chloride 98 mmol/L (98-107) 07/04/17 04:46 Carbon Dioxide 26.0 mmol/L (21-32) 07/04/17 04:46 BUN 21 mg/dL (7-18) H 07/04/17 04:46 Creatinine 1.49 mg/dL (0.70-1.30) H 07/04/17 04:46 Est GFR (MDRD) Af Amer > 60 (>60) 07/04/17 04:46 Est GFR (MDRD) Non-Af 50 (>60) L 07/04/17 04:46 Glucose 113 mg/dL (65-99) H 07/04/17 04:46 Calcium 7.4 mg/dL (8.5-10.1) L 07/04/17 04:46 Corrected Calcium 8.4 mg/dL (8.5-10.1) L 07/04/17 04:46 Total Bilirubin 1.00 mg/dL (0.2-1.0) 07/04/17 04:46 AST 42 Units/L (15-37) H 07/04/17 04:46 ALT 37 Units/L (12-78) 07/04/17 04:46 Alkaline Phosphatase 106 Units/L (46-116) 07/04/17 04:46 Ammonia 26 umol/L (11-32) 07/02/17 04:49 Total Protein 5.7 g/dL (6.4-8.2) L 07/04/17 04:46 Albumin 2.7 g/dL (3.4-5.0) L 07/04/17 04:46 Globulin 3.0 g/dL (2.5-4.5) 07/04/17 04:46 Albumin/Globulin Ratio 0.9 Ratio (1.1-2.1) L 07/04/17 04:46 Triglycerides Cancelled 07/01/17 12:01 Cholesterol Cancelled 07/01/17 12:01 LDL Cholesterol, Calc Cancelled 07/01/17 12:01 HDL Cholesterol Cancelled 07/01/17 12:01 Cholesterol/HDL Ratio Cancelled 07/01/17 12:01 Amylase Cancelled 07/01/17 12:01 Lipase Cancelled 07/01/17 12:01 Cytology Specimen To follow 07/01/17 12:01 - Plan (1) Acute dyspnea Status: Acute Plan: ADMIT, RESPIRATORY TREATMENTS, LASIX 40MG IV BID, CONTINUE TO MONITOR (2) Ascites Status: Acute Qualifiers: Ascites type: other type Qualified Code(s): R18.8 - Other ascites Plan: STATUS POST PARACENTESIS, CONTINUE TO MONITOR (3) Prerenal azotemia Status: Acute (4) Scrotal edema Status: Acute
[2017-07-05] MEDS: PROVENTIL NEB TX 0.083% 2.5MG/ 3ML NEB SCH ×2 (01:01→05:43)
[2017-07-05] MEDS: NS 1000 ML 1,000 ML IV SCH ×3 (03:18→10:46)
[2017-07-05] MEDS: ZOSYN VIAL 3.375 GM 3.375 GM in NS 100 ML IV + SPIKE MINIBAG* 100 ML IV SCH (05:02)
[2017-07-05] MEDS: MORPHINE SULFATE INJ 4 MG IVP PRN (05:16)
[2017-07-05 05:41] LABS: BASOPHILS % (AUTO) 0.5 % (0.2-1.0); EOSINOPHILS # (AUTO) 0.2 x10^3/uL (0.0-0.2); EOSINOPHILS % (AUTO) 3.1 % (0.9-2.9); HEMATOCRIT 23.5 % (42.0-54.0); HEMOGLOBIN 8.5 g/dL (13.5-18.0); LYMPHOCYTES # (AUTO) 0.3 X10^3/uL (1.3-2.9); LYMPHOCYTES % (AUTO) 3.8 % (21.0-51.0); MEAN CORPUSCULAR HEMOGLOBIN 35.7 pg (27.0-34.0); MEAN CORPUSCULAR HGB CONC 35.9 g/dL (33.0-35.0); MEAN CORPUSCULAR VOLUME 99.3 fL (80.0-100.0); MEAN PLATELET VOLUME 8.4 fL (7.4-11.0); MONOCYTES # (AUTO) 1.1 x10^3/uL (0.3-0.8); MONOCYTES % (AUTO) 16.6 % (0.0-13.0); NEUTROPHILS # (AUTO) 5.2 x10^3/uL (2.2-4.8); PLATELET COUNT 118 X10^3/uL (150.0-450.0); RED BLOOD COUNT 2.37 X10^6/uL (4.7-6.0); RED CELL DISTRIBUTION WIDTH 13.5 % (11.6-16.5); WHITE BLOOD COUNT 6.8 X10^3/uL (3.6-10.0)
[2017-07-05 05:46] LABS: ALANINE AMINOTRANSFERASE 29 Units/L (12-78); ALBUMIN 2.6 g/dL (3.4-5.0); ALKALINE PHOSPHATASE 70 Units/L (46-116); ASPARTATE AMINO TRANSFERASE 32 Units/L (15-37); BLOOD UREA NITROGEN 24 mg/dL (7-18); CALCIUM 6.9 mg/dL (8.5-10.1); CARBON DIOXIDE 23.6 mmol/L (21-32); CHLORIDE 98 mmol/L (98-107); COR NA(FOR HYPERGLY) 129 mmol/L (136-145); CREATININE 1.39 mg/dL (0.70-1.30); SODIUM 129 mmol/L (136-145); TOTAL PROTEIN 5.3 g/dL (6.4-8.2); eGFR BLACK RACES > 60 (>60); eGFR NON BLACK RACES 55 (>60)
[2017-07-05 06:29] LABS: BAND NEUTROPHILS % 1 % (0-10)
[2017-07-05 06:30] LABS: PLATELET MORPHOLOGY COMMENT NORMAL (NORMAL)
[2017-07-05] MEDS ORDERED: K-LYTE EFFERVESCENT PO PRN (06:32)
[2017-07-05] MEDS ORDERED: POTASSIUM CHL 60 MEQ/NS 0.45% 500 ML IV PRN (06:32)
[2017-07-05] MEDS ORDERED: K-RIDER 10 MEQ/NS 100 ML 10 MEQ/100 ML BAG IV PRN (06:32)
[2017-07-05] MEDS ORDERED: MAGNESIUM SULFATE 1 GM/100 mL PREMIX 1 GM/100 ML BAG IV PRN (06:32)
[2017-07-05] MEDS ORDERED: POTASSIUM CHL 40 MEQ/NS 0.45% 500 ML IV PRN (06:32)
[2017-07-05] MEDS ORDERED: POTASSIUM CHLORIDE LIQ 20 MEQ UDC PO PRN (06:32)
[2017-07-05] MEDS: NICOTINE PATCH TD SCH (08:51)
[2017-07-05] MEDS: ALBUMIN HUMAN 25%- 100ML 100 ML IV SCH (08:52)
[2017-07-05] MEDS: CHRONULAC PO SCH (08:52)
[2017-07-05] MEDS: MICRO K EXTEN CAP 10 MEQ PO SCH (08:54)
[2017-07-05] MEDS: MAG-OX TAB PO SCH (08:54)
[2017-07-05 09:50] LABS: CREATININE 1.44 mg/dL (0.70-1.30); VANCOMYCIN,TROUGH 10.8 ug/mL (15-20)
[2017-07-05] MEDS: VANCOMYCIN HCL 1 GM VIAL 1 GM in D5W 250 ML IV 250 ML IV SCH (10:23)
[2017-07-05 12:40] VITALS: BP 123/58
== END 2017-07-05 12:30 | disposition home or self-care (01) | DRG 204 ==
LOC: ER 11:15 → MED/SURG 14:13
PROVIDERS: ADMIT Internal Medicine; ATTEND Internal Medicine
PROC: 0W9G30Z Drainage of Peritoneal Cavity with Drainage Device, Percutaneous Approach (ICD-10-PCS; principal; 2017-07-01)
DX: R06.09 Other forms of dyspnea (principal); R18.8 Other ascites; R79.89 Other specified abnormal findings of blood chemistry; N50.89 Other specified disorders of the male genital organs; J44.9 Chronic obstructive pulmonary disease, unspecified; B18.2 Chronic viral hepatitis C; R60.0 Localized edema; K21.9 Gastro-esophageal reflux disease without esophagitis; B19.20 Unspecified viral hepatitis C without hepatic coma; Z66 Do not resuscitate
CPT/HCPCS: 36415; 71045; 76700; 78582; 80053; 80061; 80202; 82040; 82140; 82150; 82435; 82565; 82947; 83690; 83735; 84132; 84295; 85025; 85378; 85610; 85730; 87040; 87070; 87205; 93970; 94640; 94760; 96365; 96367; 96374; 96375; 99283; 99284; A4216; A4222; A9540; A9567; P9047; J1885; J1940; J2270; J2543; J3370; J7613; J7620